=== PATIENT | female | born 1945 | race Caucasian/White ===

== ENCOUNTER 2020-05-03 16:26 | Inpatient (IN) ==
[2020-05-03 17:08] LABS: Basophils # 0.1 K/mcL (0.0-0.2); Basophils % 0.8 %; Eosinophils # 0.3 K/mcL (0.0-0.6); Eosinophils % 2.8 %; Hematocrit 28.8 % (35.3-44.9); Hemoglobin 10.5 g/dL (11.5-15.4); Immature Granulocytes % 0.2 % (0-4); Lymphocytes # 1.6 K/mcL (0.6-4.6); Lymphocytes % 17.5 %; Mean Corpuscular HGB Conc 36.5 g/dL (31.6-35.5); Mean Corpuscular Hemoglobin 30.7 pg (28.0-33.3); Mean Corpuscular Volume 84.2 fL (83.0-100.0); Mean Platelet Volume 9.4 fL (9.4-12.4); Monocytes # 1.2 K/mcL (0.0-1.3); Monocytes % 13.3 %; Neutrophils # 5.8 K/mcL (1.6-8.9); Platelet Count 231 K/mcL (140-400); Red Blood Count 3.42 M/mcL (3.82-4.97); Red Cell Distribution Width 11.7 % (11.5-14.5); Segmented Neutrophils % 65.4 %; White Blood Count 8.8 K/mcL (4.3-11.1)
[2020-05-03 17:34] LABS: Calcium 9.1 mg/dL (8.6-10.3); Potassium 3.9 mEq/L (3.5-5.1); Troponin I 0.03 ng/mL (< 0.04)
[2020-05-03] MEDS ORDERED: Naloxone 0.4 MG/ML INJ IVP PRN (17:59)
[2020-05-03 18:29] LABS: Albumin/Globulin Ratio 1.3 (1.1-2.2); Bilirubin,Direct 0.2 mg/dL (0.0-0.2); Bilirubin,Indirect 0.7 mg/dL (0.0-1.0); Bilirubin,Total 0.9 mg/dL (0.3-1.0)
[2020-05-03] MEDS ORDERED: 0.9 % Sodium Chloride 1,000 ML IVC SCH (18:30)
[2020-05-03 21:08] LABS: Adenovirus Not Detected (Not Detect); Bordetella Pertussis Not Detected (Not Detect); Chlamydophila pneumoniae Not Detected (Not Detect); Coronavirus 229E Not Detected (Not Detect); Coronavirus HKU1 Not Detected (Not Detect); Coronavirus NL63 Not Detected (Not Detect); Coronavirus OC43 Not Detected (Not Detect); Human Metapneumovirus Not Detected (Not Detect); Human Rhinovirus/Enterovirus Not Detected (Not Detect); Influenza A Subtype 2009 H1 Not Detected (Not Detect); Influenza B Not Detected (Not Detect); Mycoplasma pneumoniae Not Detected (Not Detect); Parainfluenza Virus 1 Not Detected (Not Detect); Parainfluenza Virus 2 Not Detected (Not Detect); Parainfluenza Virus 3 Not Detected (Not Detect); Parainfluenza Virus 4 Not Detected (Not Detect); Respiratory Syncytial Virus Not Detected (Not Detect)
[2020-05-03 21:09] LABS: SARS-CoV-2 Not Detected (Not Detect)
[2020-05-03] MEDS: hydrALAZINE 10 MG TABLET PO SCH (22:19)
[2020-05-03] MEDS: carvediloL 6.25 MG TABLET PO SCH (22:19)
[2020-05-03 22:42] LABS: Bilirubin,Urine Negative (Negative); Blood,Urine Small (Negative); Clarity,Urine Clear (Clear); Color,Urine Light-Yellow (Yellow); Glucose,Urine (UA) 30 mg/dL (Normal); Hyaline Casts,Urine Few per lpf (None Seen); Ketones,Urine Negative (Negative); Leukocyte Esterase,Urine Negative (Negative); Mucus,Urine Few per lpf (None-Few); Nitrite,Urine Negative (Negative); PH,Urine 6.5 pH Units (5.0-8.0); Protein,Urine >=300 mg/dL (Neg-Trace); Specific Gravity,Urine 1.011 (1.010-1.025); Squamous Epithelial Cell,Urine Few per hpf (None-Few); Urobilinogen,Urine Normal (Normal); WBC,Urine 0-3 per hpf (0-3)
[2020-05-03 23:08] LABS: Creatinine,Urine 63 mg/dL; Microalbumin,Urine > 1350 mg/L; Protein/Creatinine Ratio,Urine 5.83 mg/mg (0.00-0.20); Sodium, Urine 61.3 mEq/L
[2020-05-04] MEDS ORDERED: amLODIPine 5 MG TABLET PO ONE (00:16)
[2020-05-04 06:13] LABS: Basophils # 0.1 K/mcL (0.0-0.2); Basophils % 0.9 %; Eosinophils # 0.1 K/mcL (0.0-0.6); Hematocrit 25.6 % (35.3-44.9); Hemoglobin 9.4 g/dL (11.5-15.4); Immature Granulocytes % 0.3 % (0-4); Lymphocytes # 1.3 K/mcL (0.6-4.6); Lymphocytes % 15.2 %; Mean Corpuscular HGB Conc 36.7 g/dL (31.6-35.5); Mean Corpuscular Hemoglobin 30.9 pg (28.0-33.3); Mean Corpuscular Volume 84.2 fL (83.0-100.0); Mean Platelet Volume 9.7 fL (9.4-12.4); Monocytes # 0.7 K/mcL (0.0-1.3); Monocytes % 8.3 %; Neutrophils # 6.4 K/mcL (1.6-8.9); Platelet Count 211 K/mcL (140-400); Red Blood Count 3.04 M/mcL (3.82-4.97); Red Cell Distribution Width 11.8 % (11.5-14.5); Segmented Neutrophils % 74.3 %; White Blood Count 8.7 K/mcL (4.3-11.1)
[2020-05-04 06:43] LABS: Calcium 8.4 mg/dL (8.6-10.3); Potassium 3.9 mEq/L (3.5-5.1)
[2020-05-04] MEDS: Isosorbide MONOnitrate (24 HR) 30 MG TAB.ER.24H PO SCH (08:00)
[2020-05-04] MEDS: Aspirin 81 MG TAB.CHEW PO SCH (08:00)
[2020-05-04] MEDS: amLODIPine 5 MG TABLET PO SCH (08:00)
[2020-05-04] MEDS: carvediloL 6.25 MG TABLET PO SCH ×2 (08:00→16:11)
[2020-05-04] MEDS: hydrALAZINE 10 MG TABLET PO SCH ×3 (08:01→19:52)
[2020-05-04 09:44] LABS: Thyroid Stimulating Hormone 3.983 mcIU/mL (0.340-5.600)
[2020-05-04 10:43] LABS: Complement C3 102 mg/dL (87-200)
[2020-05-04 14:02] LABS: C-Reactive Protein < 5 mg/L (Less than 10)
[2020-05-04 14:43] LABS: Albumin 3.5 g/dL (3.5-5.7); Albumin/Globulin Ratio 1.3 (1.1-2.2); Globulin 2.6 g/dL (2.4-3.5); Lactate Dehydrogenase 249 Units/L (140-271); Total Protein 6.1 g/dL (6.4-8.9)
[2020-05-04 17:31] LABS: Appearance of Pleural Fl Hazy (Clear)
[2020-05-04 17:37] LABS: RBC,Pleural Fluid 6000 RBC/mcL
[2020-05-04 17:51] LABS: LDH,Pleural Fluid 67 Units/L (No Ref Range); Total Protein,Pleural Fluid < 3.0 g/dL
[2020-05-04] MEDS: *HR* Heparin 5,000 UNIT/ML VIAL SQ SCH (19:53)
[2020-05-04 20:18] LABS: Basophils,Pleural Fluid 0 %; Eosinophils,Pleural Fluid 0 %; Monocytes,Pleural Fluid 0 %
[2020-05-04 23:35] LABS: Calcium 8.5 mg/dL (8.6-10.3)
[2020-05-05] MEDS ORDERED: Acetaminophen 325 MG TABLET PO ONE (04:34)
[2020-05-05] MEDS: *HR* Heparin 5,000 UNIT/ML VIAL SQ SCH ×2 (05:10→17:05)
[2020-05-05 05:37] LABS: Basophils # 0.1 K/mcL (0.0-0.2); Basophils % 0.6 %; Eosinophils # 0.1 K/mcL (0.0-0.6); Eosinophils % 0.6 %; Hemoglobin 8.4 g/dL (11.5-15.4); Immature Granulocytes % 0.3 % (0-4); Lymphocytes # 1.6 K/mcL (0.6-4.6); Lymphocytes % 16.3 %; Mean Corpuscular HGB Conc 36.5 g/dL (31.6-35.5); Mean Corpuscular Hemoglobin 32.1 pg (28.0-33.3); Mean Corpuscular Volume 87.8 fL (83.0-100.0); Mean Platelet Volume 9.5 fL (9.4-12.4); Monocytes # 0.8 K/mcL (0.0-1.3); Monocytes % 8.2 %; Neutrophils # 7.4 K/mcL (1.6-8.9); Platelet Count 184 K/mcL (140-400); Red Blood Count 2.62 M/mcL (3.82-4.97); Red Cell Distribution Width 11.8 % (11.5-14.5)
[2020-05-05 05:52] LABS: Calcium 8.1 mg/dL (8.6-10.3)
[2020-05-05] MEDS: Aspirin 81 MG TAB.CHEW PO SCH (07:33)
[2020-05-05] MEDS: carvediloL 6.25 MG TABLET PO SCH ×2 (07:33→15:42)
[2020-05-05] MEDS: amLODIPine 5 MG TABLET PO SCH (07:33)
[2020-05-05] MEDS: Isosorbide MONOnitrate (24 HR) 30 MG TAB.ER.24H PO SCH (07:33)
[2020-05-05] MEDS: hydrALAZINE 10 MG TABLET PO SCH (07:33)
[2020-05-05] MEDS ORDERED: Furosemide 40 MG/4 ML VIAL IVP ONE (10:11)
[2020-05-05 11:50] LABS: Calcium 7.9 mg/dL (8.6-10.3); Potassium 4.2 mEq/L (3.5-5.1)
[2020-05-05] MEDS ORDERED: Tolvaptan 15 MG TABLET PO ONE (14:34)
[2020-05-05 15:31] LABS: Calcium 8.1 mg/dL (8.6-10.3)
[2020-05-05] MEDS: hydrALAZINE 25 MG TABLET PO SCH ×2 (15:42→22:12)
[2020-05-06] MEDS: *HR* Heparin 5,000 UNIT/ML VIAL SQ SCH ×2 (05:15→17:38)
[2020-05-06 07:38] LABS: Basophils # 0.1 K/mcL (0.0-0.2); Basophils % 0.6 %; Eosinophils # 0.2 K/mcL (0.0-0.6); Eosinophils % 1.8 %; Hemoglobin 8.3 g/dL (11.5-15.4); Immature Granulocytes % 0.2 % (0-4); Lymphocytes # 1.5 K/mcL (0.6-4.6); Lymphocytes % 16.5 %; Mean Corpuscular HGB Conc 36.1 g/dL (31.6-35.5); Mean Corpuscular Hemoglobin 31.4 pg (28.0-33.3); Mean Corpuscular Volume 87.1 fL (83.0-100.0); Mean Platelet Volume 9.6 fL (9.4-12.4); Monocytes % 11.4 %; Neutrophils # 6.1 K/mcL (1.6-8.9); Platelet Count 188 K/mcL (140-400); Red Blood Count 2.64 M/mcL (3.82-4.97); Red Cell Distribution Width 11.8 % (11.5-14.5); Segmented Neutrophils % 69.5 %; White Blood Count 8.8 K/mcL (4.3-11.1)
[2020-05-06 07:51] LABS: Calcium 8.3 mg/dL (8.6-10.3); Potassium 3.8 mEq/L (3.5-5.1)
[2020-05-06] MEDS: amLODIPine 5 MG TABLET PO SCH (08:05)
[2020-05-06] MEDS: carvediloL 6.25 MG TABLET PO SCH ×2 (08:05→15:26)
[2020-05-06] MEDS: Isosorbide MONOnitrate (24 HR) 30 MG TAB.ER.24H PO SCH (08:05)
[2020-05-06] MEDS: hydrALAZINE 25 MG TABLET PO SCH ×3 (08:05→22:27)
[2020-05-06] MEDS: Aspirin 81 MG TAB.CHEW PO SCH (08:05)
[2020-05-06 08:12] LABS: Folate 19.1 ng/mL (3.0-16.0)
[2020-05-06 10:41] LABS: Serine Protease-3 Antibody 2 AU/mL (0-19)
[2020-05-06 10:43] LABS: ANA IgG by ELISA DETECTED (None Detected)
[2020-05-06] MEDS ORDERED: Ferumoxytol 510 MG in 0.9 % Sodium Chloride 100 ML IVPB ONE (12:37)
[2020-05-07 02:00] LABS: QuantiFERON Mitogen minus NIL 9.17 IU/mL
[2020-05-07] MEDS: *HR* Heparin 5,000 UNIT/ML VIAL SQ SCH ×2 (05:37→17:05)
[2020-05-07 07:34] LABS: Basophils # 0.1 K/mcL (0.0-0.2); Basophils % 1.4 %; Eosinophils # 0.3 K/mcL (0.0-0.6); Eosinophils % 3.7 %; Hematocrit 25.3 % (35.3-44.9); Immature Granulocytes % 0.4 % (0-4); Lymphocytes # 1.6 K/mcL (0.6-4.6); Lymphocytes % 19.3 %; Mean Corpuscular HGB Conc 35.6 g/dL (31.6-35.5); Mean Corpuscular Hemoglobin 31.3 pg (28.0-33.3); Mean Corpuscular Volume 87.8 fL (83.0-100.0); Mean Platelet Volume 9.5 fL (9.4-12.4); Monocytes # 0.9 K/mcL (0.0-1.3); Monocytes % 11.6 %; Neutrophils # 5.2 K/mcL (1.6-8.9); Platelet Count 212 K/mcL (140-400); Red Blood Count 2.88 M/mcL (3.82-4.97); Red Cell Distribution Width 11.9 % (11.5-14.5); Segmented Neutrophils % 63.6 %; White Blood Count 8.1 K/mcL (4.3-11.1)
[2020-05-07 07:50] LABS: Calcium 9.1 mg/dL (8.6-10.3); Potassium 3.9 mEq/L (3.5-5.1)
[2020-05-07 09:04] LABS: QuantiFERON NIL 0.09 IU/mL; QuantiFERON-TB Gold In-Tube NEGATIVE (Negative)
[2020-05-07] MEDS: Isosorbide MONOnitrate (24 HR) 30 MG TAB.ER.24H PO SCH (09:34)
[2020-05-07] MEDS: Aspirin 81 MG TAB.CHEW PO SCH (09:34)
[2020-05-07] MEDS: hydrALAZINE 25 MG TABLET PO SCH ×3 (09:34→21:19)
[2020-05-07] MEDS: amLODIPine 5 MG TABLET PO SCH (09:34)
[2020-05-07] MEDS: carvediloL 6.25 MG TABLET PO SCH ×2 (09:34→17:05)
[2020-05-07] MEDS ORDERED: Saline Nasal Spray 44 ML BOTTLE NS PRN (14:47)
[2020-05-08 02:00] LABS: Basophils # 0.1 K/mcL (0.0-0.2); Basophils % 1.1 %; Eosinophils # 0.2 K/mcL (0.0-0.6); Eosinophils % 2.7 %; Hematocrit 22.7 % (35.3-44.9); Hemoglobin 8.1 g/dL (11.5-15.4); Immature Granulocytes % 0.7 % (0-4); Lymphocytes # 1.5 K/mcL (0.6-4.6); Mean Corpuscular HGB Conc 35.7 g/dL (31.6-35.5); Mean Corpuscular Hemoglobin 31.8 pg (28.0-33.3); Mean Platelet Volume 9.7 fL (9.4-12.4); Monocytes # 0.8 K/mcL (0.0-1.3); Neutrophils # 6.1 K/mcL (1.6-8.9); Platelet Count 192 K/mcL (140-400); Red Blood Count 2.55 M/mcL (3.82-4.97); Red Cell Distribution Width 11.9 % (11.5-14.5); Segmented Neutrophils % 69.5 %; White Blood Count 8.8 K/mcL (4.3-11.1)
[2020-05-08 02:16] LABS: Calcium 8.2 mg/dL (8.6-10.3); Potassium 4.4 mEq/L (3.5-5.1)
[2020-05-08] MEDS: *HR* Heparin 5,000 UNIT/ML VIAL SQ SCH ×2 (06:15→16:02)
[2020-05-08] MEDS: hydrALAZINE 25 MG TABLET PO SCH ×3 (07:28→21:54)
[2020-05-08] MEDS: Aspirin 81 MG TAB.CHEW PO SCH (07:28)
[2020-05-08] MEDS: Isosorbide MONOnitrate (24 HR) 30 MG TAB.ER.24H PO SCH (07:28)
[2020-05-08] MEDS: carvediloL 6.25 MG TABLET PO SCH (07:28)
[2020-05-08] MEDS: amLODIPine 5 MG TABLET PO SCH (07:29)
[2020-05-08 08:16] LABS: ANA HEp-2 IgG IFA DETECTED (<1:80); Anti Nuclear Ab Pattern CENTROMERE; Anti Nuclear Ab Pattern 2 NUCLEOLAR
[2020-05-08] MEDS ORDERED: carvediloL 6.25 MG TABLET PO ONE (11:14)
[2020-05-08 12:16] LABS: Prothrombin Time 11.4 Seconds (9.4-12.1)
[2020-05-08] MEDS: carvediloL 25 MG TABLET PO SCH (16:01)
[2020-05-08] MEDS ORDERED: Tolvaptan 15 MG TABLET PO ONE (22:01)
[2020-05-09] MEDS: *HR* Heparin 5,000 UNIT/ML VIAL SQ SCH ×2 (04:48→16:32)
[2020-05-09 04:49] LABS: Basophils # 0.1 K/mcL (0.0-0.2); Basophils % 1.2 %; Eosinophils # 0.3 K/mcL (0.0-0.6); Hematocrit 22.9 % (35.3-44.9); Hemoglobin 7.8 g/dL (11.5-15.4); Immature Granulocytes % 0.4 % (0-4); Lymphocytes # 1.7 K/mcL (0.6-4.6); Lymphocytes % 23.1 %; Mean Corpuscular HGB Conc 34.1 g/dL (31.6-35.5); Mean Corpuscular Hemoglobin 30.4 pg (28.0-33.3); Mean Corpuscular Volume 89.1 fL (83.0-100.0); Mean Platelet Volume 9.7 fL (9.4-12.4); Monocytes # 0.7 K/mcL (0.0-1.3); Monocytes % 10.1 %; Neutrophils # 4.4 K/mcL (1.6-8.9); Platelet Count 195 K/mcL (140-400); Red Blood Count 2.57 M/mcL (3.82-4.97); Red Cell Distribution Width 11.7 % (11.5-14.5); Segmented Neutrophils % 61.2 %; White Blood Count 7.2 K/mcL (4.3-11.1)
[2020-05-09 05:04] LABS: Albumin 3.3 g/dL (3.5-5.7); Albumin/Globulin Ratio 1.3 (1.1-2.2); Bilirubin,Total 0.7 mg/dL (0.3-1.0); Calcium 8.1 mg/dL (8.6-10.3); Globulin 2.5 g/dL (2.4-3.5); Potassium 4.3 mEq/L (3.5-5.1); Total Protein 5.8 g/dL (6.4-8.9)
[2020-05-09] MEDS ORDERED: 0.9 % Sodium Chloride 500 ML ONE (09:25)
[2020-05-09] MEDS: Spironolactone 25 MG TABLET PO SCH (09:58)
[2020-05-09] MEDS: carvediloL 25 MG TABLET PO SCH ×2 (09:58→16:32)
[2020-05-09] MEDS: amLODIPine 5 MG TABLET PO SCH (09:58)
[2020-05-09] MEDS: Aspirin 81 MG TAB.CHEW PO SCH (09:59)
[2020-05-09] MEDS: Isosorbide MONOnitrate (24 HR) 30 MG TAB.ER.24H PO SCH (09:59)
[2020-05-09] MEDS: hydrALAZINE 25 MG TABLET PO SCH ×3 (09:59→22:12)
[2020-05-09] MEDS ORDERED: *HR* Metoprolol 5 MG/5 ML VIAL IVP PRN (10:46)
[2020-05-09] MEDS: Tolvaptan 15 MG TABLET PO SCH (16:32)
[2020-05-10] MEDS: carvediloL 25 MG TABLET PO SCH ×2 (07:07→16:32)
[2020-05-10] MEDS: hydrALAZINE 25 MG TABLET PO SCH ×3 (07:07→21:57)
[2020-05-10] MEDS: amLODIPine 5 MG TABLET PO SCH (07:07)
[2020-05-10] MEDS: Spironolactone 25 MG TABLET PO SCH (07:08)
[2020-05-10] MEDS: Isosorbide MONOnitrate (24 HR) 30 MG TAB.ER.24H PO SCH (07:08)
[2020-05-10 07:20] LABS: Hematocrit 24.1 % (35.3-44.9); Hemoglobin 8.4 g/dL (11.5-15.4); Mean Corpuscular HGB Conc 34.9 g/dL (31.6-35.5); Mean Corpuscular Hemoglobin 30.7 pg (28.0-33.3); Mean Platelet Volume 9.7 fL (9.4-12.4); Platelet Count 202 K/mcL (140-400); Red Blood Count 2.74 M/mcL (3.82-4.97); Red Cell Distribution Width 11.9 % (11.5-14.5); White Blood Count 6.9 K/mcL (4.3-11.1)
[2020-05-10 07:38] LABS: Calcium 8.4 mg/dL (8.6-10.3); Potassium 4.4 mEq/L (3.5-5.1)
[2020-05-10] MEDS ORDERED: cloNIDine HCL 0.1 MG TABLET PO ONE (08:44)
[2020-05-10] MEDS ORDERED: *HR* FentaNYL (PF) 100 MCG/2 ML VIAL ONE (10:50)
[2020-05-10] MEDS ORDERED: 0.9 % Sodium Chloride 500 ML ONE (10:50)
[2020-05-10] MEDS ORDERED: *HR* Midazolam HCl 2 MG/2 ML VIAL ONE (10:50)
[2020-05-10] MEDS ORDERED: *HR* FentaNYL (PF) 100 MCG/2 ML VIAL IVP ONE (11:03)
[2020-05-10] MEDS ORDERED: *HR* Midazolam HCl 2 MG/2 ML VIAL IVP ONE (11:03)
[2020-05-10] MEDS: Aspirin 81 MG TAB.CHEW PO SCH (11:50)
[2020-05-10] MEDS: Tolvaptan 15 MG TABLET PO SCH (14:20)
[2020-05-10 18:03] LABS: Calcium 8.5 mg/dL (8.6-10.3); Potassium 4.3 mEq/L (3.5-5.1)
[2020-05-11 02:01] LABS: Hematocrit 22.8 % (35.3-44.9); Hemoglobin 7.9 g/dL (11.5-15.4); Mean Corpuscular HGB Conc 34.6 g/dL (31.6-35.5); Mean Corpuscular Hemoglobin 30.6 pg (28.0-33.3); Mean Corpuscular Volume 88.4 fL (83.0-100.0); Mean Platelet Volume 9.7 fL (9.4-12.4); Platelet Count 198 K/mcL (140-400); Red Blood Count 2.58 M/mcL (3.82-4.97); Red Cell Distribution Width 11.9 % (11.5-14.5); White Blood Count 8.9 K/mcL (4.3-11.1)
[2020-05-11 02:20] LABS: Calcium 8.6 mg/dL (8.6-10.3); Potassium 4.5 mEq/L (3.5-5.1)
[2020-05-11] MEDS: amLODIPine 5 MG TABLET PO SCH (09:35)
[2020-05-11] MEDS: Spironolactone 25 MG TABLET PO SCH (09:35)
[2020-05-11] MEDS: carvediloL 25 MG TABLET PO SCH ×2 (09:35→16:15)
[2020-05-11] MEDS: Aspirin 81 MG TAB.CHEW PO SCH (09:35)
[2020-05-11] MEDS: hydrALAZINE 25 MG TABLET PO SCH ×3 (09:35→21:27)
[2020-05-11] MEDS: Isosorbide MONOnitrate (24 HR) 30 MG TAB.ER.24H PO SCH (09:35)
[2020-05-11] MEDS: Tolvaptan 15 MG TABLET PO SCH (10:01)
[2020-05-11] MEDS ORDERED: Acetaminophen 325 MG TABLET PO PRN (11:25)
[2020-05-11 16:11] LABS: Calcium 8.3 mg/dL (8.6-10.3); Potassium 4.7 mEq/L (3.5-5.1)
[2020-05-11] MEDS ORDERED: Ondansetron 4 MG/2 ML VIAL IVP ONE (22:12)
[2020-05-12 06:38] LABS: Hematocrit 23.6 % (35.3-44.9); Hemoglobin 8.4 g/dL (11.5-15.4); Mean Corpuscular HGB Conc 35.6 g/dL (31.6-35.5); Mean Corpuscular Hemoglobin 31.3 pg (28.0-33.3); Mean Corpuscular Volume 88.1 fL (83.0-100.0); Mean Platelet Volume 9.8 fL (9.4-12.4); Platelet Count 205 K/mcL (140-400); Red Blood Count 2.68 M/mcL (3.82-4.97); Red Cell Distribution Width 12.1 % (11.5-14.5); White Blood Count 11.2 K/mcL (4.3-11.1)
[2020-05-12 07:02] LABS: Calcium 8.2 mg/dL (8.6-10.3); Potassium 4.5 mEq/L (3.5-5.1)
[2020-05-12] MEDS: amLODIPine 5 MG TABLET PO SCH (09:18)
[2020-05-12] MEDS: carvediloL 25 MG TABLET PO SCH ×2 (09:18→16:57)
[2020-05-12] MEDS: hydrALAZINE 25 MG TABLET PO SCH ×2 (09:18→16:56)
[2020-05-12] MEDS: Aspirin 81 MG TAB.CHEW PO SCH (09:18)
[2020-05-12] MEDS: Isosorbide MONOnitrate (24 HR) 30 MG TAB.ER.24H PO SCH (09:18)
[2020-05-12] MEDS: Spironolactone 25 MG TABLET PO SCH (09:18)
[2020-05-12] MEDS: Tolvaptan 15 MG TABLET PO SCH (09:23)
[2020-05-12 16:57] VITALS: BP 148/56
[2020-05-12 17:42] LABS: Calcium 8.6 mg/dL (8.6-10.3); Potassium 4.5 mEq/L (3.5-5.1)
== END 2020-05-12 20:26 | disposition home or self-care (01) | DRG 682 ==
LOC: 2ANU 16:26 → EMEROOARM 16:26 → 2ANU 21:15 → SUATTDRO 05-04 13:27
PROVIDERS: ADMIT Internal Medicine; ATTEND Internal Medicine

== ENCOUNTER 2021-03-05 10:38 | Inpatient (IN) ==
[2021-03-05 13:10] LABS: INR 1.2; Prothrombin Time 13.7 Seconds (9.4-12.1)
[2021-03-05 13:20] LABS: Basophils # 0.1 K/mcL (0.0-0.2); Basophils % 0.8 %; Eosinophils # 0.1 K/mcL (0.0-0.6); Eosinophils % 0.7 %; Hematocrit 22.9 % (35.3-44.9); Hemoglobin 8.1 g/dL (11.5-15.4); Immature Granulocytes % 0.6 % (0-4); Lymphocytes # 0.6 K/mcL (0.6-4.6); Lymphocytes % 4.9 %; Mean Corpuscular HGB Conc 35.4 g/dL (31.6-35.5); Mean Corpuscular Hemoglobin 31.8 pg (28.0-33.3); Mean Corpuscular Volume 89.8 fL (83.0-100.0); Mean Platelet Volume 9.6 fL (9.4-12.4); Monocytes # 1.1 K/mcL (0.0-1.3); Monocytes % 8.2 %; Platelet Count 241 K/mcL (140-400); Red Blood Count 2.55 M/mcL (3.82-4.97); Red Cell Distribution Width 12.4 % (11.5-14.5); Segmented Neutrophils % 84.8 %
[2021-03-05 13:33] LABS: Calcium 8.3 mg/dL (8.6-10.3); Potassium 4.7 mEq/L (3.5-5.1); Troponin I 0.03 ng/mL (< 0.04)
[2021-03-05] MEDS ORDERED: Piperacillin/Tazobactam 3.375 GM in 0.9 % Sodium Chloride Mini Bag 100 ML IVPB ONE (13:35)
[2021-03-05] MEDS ORDERED: Vancomycin 500 MG in 0.9 % Sodium Chloride Mini Bag 100 ML IVPB ONE ×2 (13:55→14:00)
[2021-03-05] MEDS ORDERED: 0.9 % Sodium Chloride 1,000 ML IVC SCH (14:30)
[2021-03-05 14:43] LABS: Bilirubin,Urine Negative (Negative); Blood,Urine Small (Negative); Clarity,Urine Clear (Clear); Color,Urine Light-Yellow (Yellow); Glucose,Urine (UA) 100 mg/dL (Normal); Hyaline Casts,Urine Few per lpf (None Seen); Ketones,Urine Negative (Negative); Leukocyte Esterase,Urine Trace (Negative); Mucus,Urine Few per lpf (None-Few); Nitrite,Urine Negative (Negative); Protein,Urine >=300 mg/dL (Neg-Trace); RBC,Urine 0-3 per hpf (0-3); Specific Gravity,Urine 1.016 (1.010-1.025); Squamous Epithelial Cell,Urine Few per hpf (None-Few); Transitional Epi Cells,Urine Few per hpf (None-Few); Urobilinogen,Urine Normal (Normal)
[2021-03-05] MEDS ORDERED: MOM Conc 10 ML UD.LIQ PO PRN (16:43)
[2021-03-05] MEDS ORDERED: Mag Hydrox/Al Hydrox/Simeth 30 ML UDC PO PRN (16:43)
[2021-03-05] MEDS ORDERED: Naloxone 0.4 MG/ML INJ IVP PRN (16:43)
[2021-03-05] MEDS ORDERED: *HR* Dextrose 50 % in Water (Vial) 50 ML VIAL IVP PRN (18:27)
[2021-03-05] MEDS ORDERED: Dextrose Gel 15 GM/37.5 ML TUBE PO PRN ×2 (18:27)
[2021-03-05] MEDS ORDERED: D5% in Water 1,000 ML IVC PRN (18:27)
[2021-03-05] MEDS ORDERED: Vancomycin 500 MG in 0.9 % Sodium Chloride 250 ML IVPB SCH (19:00)
[2021-03-05] MEDS: carvediloL 25 MG TABLET PO SCH (19:01)
[2021-03-05] MEDS: hydrALAZINE 25 MG TABLET PO SCH (19:01)
[2021-03-05] MEDS: *HR* Heparin 5,000 UNIT/ML VIAL SQ SCH (20:58)
[2021-03-05] MEDS: Insulin LISPRO 300 UNITS/3 ML VIAL SUBQ SCH (20:58)
[2021-03-06] MEDS: hydrALAZINE 25 MG TABLET PO SCH ×4 (00:04→16:28)
[2021-03-06 02:03] LABS: Hematocrit 20.5 % (35.3-44.9); Hemoglobin 7.4 g/dL (11.5-15.4); Mean Corpuscular HGB Conc 36.1 g/dL (31.6-35.5); Mean Corpuscular Hemoglobin 32.9 pg (28.0-33.3); Mean Corpuscular Volume 91.1 fL (83.0-100.0); Mean Platelet Volume 9.2 fL (9.4-12.4); Platelet Count 199 K/mcL (140-400); Red Blood Count 2.25 M/mcL (3.82-4.97); Red Cell Distribution Width 12.5 % (11.5-14.5); White Blood Count 11.7 K/mcL (4.3-11.1)
[2021-03-06] MEDS: Piperacillin/Tazobactam 3.375 GM in 0.9 % Sodium Chloride Mini Bag 100 ML IVPB SCH ×2 (02:12→16:28)
[2021-03-06 02:23] LABS: Calcium 7.8 mg/dL (8.6-10.3); Magnesium 1.9 mg/dL (1.6-2.6); Potassium 4.8 mEq/L (3.5-5.1)
[2021-03-06] MEDS: *HR* Heparin 5,000 UNIT/ML VIAL SQ SCH ×3 (06:04→20:54)
[2021-03-06] MEDS ORDERED: Furosemide 20 MG TABLET PO SCH (09:00)
[2021-03-06] MEDS: Isosorbide MONOnitrate (24 HR) 30 MG TAB.ER.24H PO SCH (09:06)
[2021-03-06] MEDS: amLODIPine 5 MG TABLET PO SCH (09:06)
[2021-03-06] MEDS: Aspirin 81 MG TAB.CHEW PO SCH (09:06)
[2021-03-06] MEDS: carvediloL 25 MG TABLET PO SCH ×2 (09:06→16:29)
[2021-03-06] MEDS: Insulin LISPRO 300 UNITS/3 ML VIAL SUBQ SCH ×4 (09:13→20:50)
[2021-03-06 14:47] LABS: % Iron Saturation 15 % (15-50); Iron 26 mcg/dL (50-170); Transferrin 127 mg/dL (203-362)
[2021-03-06 15:02] LABS: Ferritin 494 ng/mL (10-120)
[2021-03-06 17:53] LABS: Adenovirus Not Detected (Not Detect); Bordetella Pertussis Not Detected (Not Detect); Chlamydophila pneumoniae Not Detected (Not Detect); Coronavirus 229E Not Detected (Not Detect); Coronavirus HKU1 Not Detected (Not Detect); Coronavirus NL63 Not Detected (Not Detect); Coronavirus OC43 Not Detected (Not Detect); Human Metapneumovirus Not Detected (Not Detect); Human Rhinovirus/Enterovirus Not Detected (Not Detect); Influenza A Subtype 2009 H1 Not Detected (Not Detect); Influenza B Not Detected (Not Detect); Mycoplasma pneumoniae Not Detected (Not Detect); Parainfluenza Virus 1 Not Detected (Not Detect); Parainfluenza Virus 2 Not Detected (Not Detect); Parainfluenza Virus 3 Not Detected (Not Detect); Parainfluenza Virus 4 Not Detected (Not Detect); Respiratory Syncytial Virus Not Detected (Not Detect); SARS-CoV-2 Not Detected (Not Detect)
[2021-03-06 21:01] LABS: Sodium, Urine 14.3 mEq/L
[2021-03-07] MEDS: hydrALAZINE 25 MG TABLET PO SCH ×3 (02:01→18:10)
[2021-03-07] MEDS: Piperacillin/Tazobactam 3.375 GM in 0.9 % Sodium Chloride Mini Bag 100 ML IVPB SCH ×2 (02:02→17:08)
[2021-03-07] MEDS: *HR* Heparin 5,000 UNIT/ML VIAL SQ SCH ×2 (04:22→13:06)
[2021-03-07 04:40] LABS: Hematocrit 18.9 % (35.3-44.9); Hemoglobin 6.6 g/dL (11.5-15.4); Mean Corpuscular HGB Conc 34.9 g/dL (31.6-35.5); Mean Corpuscular Hemoglobin 32.4 pg (28.0-33.3); Mean Corpuscular Volume 92.6 fL (83.0-100.0); Mean Platelet Volume 9.1 fL (9.4-12.4); Platelet Count 185 K/mcL (140-400); Red Blood Count 2.04 M/mcL (3.82-4.97); Red Cell Distribution Width 12.5 % (11.5-14.5); White Blood Count 10.8 K/mcL (4.3-11.1)
[2021-03-07 04:57] LABS: Magnesium 1.9 mg/dL (1.6-2.6); Potassium 4.9 mEq/L (3.5-5.1)
[2021-03-07] MEDS: Aspirin 81 MG TAB.CHEW PO SCH (08:11)
[2021-03-07] MEDS: amLODIPine 5 MG TABLET PO SCH (08:11)
[2021-03-07] MEDS: carvediloL 25 MG TABLET PO SCH ×2 (08:11→18:10)
[2021-03-07] MEDS: Isosorbide MONOnitrate (24 HR) 30 MG TAB.ER.24H PO SCH (08:11)
[2021-03-07] MEDS: Insulin LISPRO 300 UNITS/3 ML VIAL SUBQ SCH ×4 (08:13→19:50)
[2021-03-07 09:00] LABS: Hematocrit 20.4 % (35.3-44.9); Hemoglobin 6.8 g/dL (11.5-15.4)
[2021-03-07] MEDS ORDERED: 0.9 % Sodium Chloride 250 ML ONE (13:24)
[2021-03-07 15:02] LABS: RBC,Pleural Fluid 2000 RBC/mcL
[2021-03-07 15:32] LABS: Glucose,Pleural Fluid 21 mg/dL (No Ref Range); LDH,Pleural Fluid > 1200 Units/L (No Ref Range); Total Protein,Pleural Fluid 3.6 g/dL
[2021-03-07 17:46] LABS: Appearance of Pleural Fl Clear (Clear); Basophils,Pleural Fluid 0 %; Eosinophils,Pleural Fluid 0 %; Lymphocytes,Pleural Fluid 0 %; Monocytes,Pleural Fluid 0 %
[2021-03-07 18:52] LABS: Hematocrit 24.8 % (35.3-44.9)
[2021-03-07 18:53] LABS: Hemoglobin 8.6 g/dL (11.5-15.4)
[2021-03-07] MEDS ORDERED: Vancomycin 500 MG in 0.9 % Sodium Chloride Mini Bag 100 ML IVPB ONE (19:00)
[2021-03-08] MEDS: hydrALAZINE 25 MG TABLET PO SCH ×3 (00:07→17:23)
[2021-03-08 00:29] LABS: Hematocrit 24.7 % (35.3-44.9); Hemoglobin 8.5 g/dL (11.5-15.4); Mean Corpuscular HGB Conc 34.4 g/dL (31.6-35.5); Mean Corpuscular Hemoglobin 31.3 pg (28.0-33.3); Mean Corpuscular Volume 90.8 fL (83.0-100.0); Mean Platelet Volume 9.4 fL (9.4-12.4); Platelet Count 174 K/mcL (140-400); Red Blood Count 2.72 M/mcL (3.82-4.97); White Blood Count 11.5 K/mcL (4.3-11.1)
[2021-03-08 00:37] LABS: Calcium 8.1 mg/dL (8.6-10.3); Potassium 4.8 mEq/L (3.5-5.1)
[2021-03-08] MEDS: Piperacillin/Tazobactam 3.375 GM in 0.9 % Sodium Chloride Mini Bag 100 ML IVPB SCH ×2 (02:38→15:17)
[2021-03-08] MEDS: Insulin LISPRO 300 UNITS/3 ML VIAL SUBQ SCH ×4 (08:32→19:51)
[2021-03-08] MEDS: Aspirin 81 MG TAB.CHEW PO SCH (09:16)
[2021-03-08] MEDS: carvediloL 25 MG TABLET PO SCH ×2 (09:17→17:23)
[2021-03-08] MEDS: Isosorbide MONOnitrate (24 HR) 30 MG TAB.ER.24H PO SCH (09:17)
[2021-03-08] MEDS: amLODIPine 5 MG TABLET PO SCH (09:17)
[2021-03-08] MEDS ORDERED: 0.9 % Sodium Chloride 1,000 ML IVC SCH (16:00)
[2021-03-08] MEDS ORDERED: Sodium Bicarbonate 150 MEQ in D5% in Water 1,000 ML IVC SCH (18:15)
[2021-03-08] MEDS: Amoxicillin/Clavulanate 500 MG TABLET PO SCH (19:45)
[2021-03-09] MEDS: Ondansetron 4 MG/2 ML VIAL IVP PRN ×2 (04:10→17:39)
[2021-03-09] MEDS: carvediloL 25 MG TABLET PO SCH ×2 (10:08→17:38)
[2021-03-09] MEDS: Amoxicillin/Clavulanate 500 MG TABLET PO SCH ×2 (10:08→21:32)
[2021-03-09] MEDS: Isosorbide MONOnitrate (24 HR) 30 MG TAB.ER.24H PO SCH (10:08)
[2021-03-09] MEDS: Aspirin 81 MG TAB.CHEW PO SCH (10:08)
[2021-03-09] MEDS: amLODIPine 5 MG TABLET PO SCH (10:08)
[2021-03-09] MEDS: hydrALAZINE 25 MG TABLET PO SCH ×3 (10:09→17:38)
[2021-03-09] MEDS: Insulin LISPRO 300 UNITS/3 ML VIAL SUBQ SCH ×4 (10:14→21:33)
[2021-03-09] MEDS ORDERED: Ferumoxytol 510 MG in 0.9 % Sodium Chloride 100 ML IVPB ONE (11:19)
[2021-03-09 11:39] LABS: Hematocrit 24.2 % (35.3-44.9); Hemoglobin 8.6 g/dL (11.5-15.4); Mean Corpuscular HGB Conc 35.5 g/dL (31.6-35.5); Mean Corpuscular Hemoglobin 31.6 pg (28.0-33.3); Mean Platelet Volume 9.5 fL (9.4-12.4); Platelet Count 194 K/mcL (140-400); Red Blood Count 2.72 M/mcL (3.82-4.97); Red Cell Distribution Width 12.5 % (11.5-14.5); White Blood Count 10.2 K/mcL (4.3-11.1)
[2021-03-09 12:31] LABS: Potassium 4.4 mEq/L (3.5-5.1)
[2021-03-09] MEDS: Furosemide 40 MG/4 ML VIAL IVP SCH ×2 (13:10→21:32)
[2021-03-10] MEDS: hydrALAZINE 25 MG TABLET PO SCH ×3 (00:35→16:42)
[2021-03-10 01:36] LABS: VBG HCO3 19 mEq/L (21-27); VBG PCO2 36 mmHg (41-51); VBG PH 7.33 pH Units (7.32-7.42); VBG PO2 213 mmHg (25-50)
[2021-03-10 02:01] LABS: Potassium 4.6 mEq/L (3.5-5.1)
[2021-03-10] MEDS: Insulin LISPRO 300 UNITS/3 ML VIAL SUBQ SCH ×4 (08:49→20:55)
[2021-03-10] MEDS: Furosemide 40 MG/4 ML VIAL IVP SCH ×2 (08:49→20:54)
[2021-03-10] MEDS: Aspirin 81 MG TAB.CHEW PO SCH (08:50)
[2021-03-10] MEDS: Amoxicillin/Clavulanate 500 MG TABLET PO SCH ×2 (08:50→20:55)
[2021-03-10] MEDS: amLODIPine 5 MG TABLET PO SCH (08:50)
[2021-03-10] MEDS: Isosorbide MONOnitrate (24 HR) 30 MG TAB.ER.24H PO SCH (08:50)
[2021-03-10] MEDS: carvediloL 25 MG TABLET PO SCH ×2 (08:50→16:42)
[2021-03-10] MEDS ORDERED: Albumin 25% 12.5gm/50mL 12.5 GM/50 ML IV.SOLN IVPB SCH (16:00)
[2021-03-11] MEDS: hydrALAZINE 25 MG TABLET PO SCH ×3 (01:50→16:30)
[2021-03-11] MEDS: Albumin 25% 12.5gm/50mL 12.5 GM/50 ML IV.SOLN IVPB SCH ×3 (04:33→21:39)
[2021-03-11 05:06] LABS: Hematocrit 22.7 % (35.3-44.9); Hemoglobin 8.2 g/dL (11.5-15.4); Mean Corpuscular HGB Conc 36.1 g/dL (31.6-35.5); Mean Corpuscular Hemoglobin 31.8 pg (28.0-33.3); Mean Platelet Volume 9.9 fL (9.4-12.4); Platelet Count 195 K/mcL (140-400); Red Blood Count 2.58 M/mcL (3.82-4.97); Red Cell Distribution Width 12.4 % (11.5-14.5); White Blood Count 12.4 K/mcL (4.3-11.1)
[2021-03-11 05:27] LABS: Calcium 8.3 mg/dL (8.6-10.3); Magnesium 1.9 mg/dL (1.6-2.6); Potassium 4.6 mEq/L (3.5-5.1)
[2021-03-11] MEDS ORDERED: Tolvaptan 15 MG TABLET PO ONE (07:49)
[2021-03-11] MEDS: amLODIPine 5 MG TABLET PO SCH (08:00)
[2021-03-11] MEDS: Amoxicillin/Clavulanate 500 MG TABLET PO SCH ×2 (08:00→21:28)
[2021-03-11] MEDS: Aspirin 81 MG TAB.CHEW PO SCH (08:01)
[2021-03-11] MEDS: carvediloL 25 MG TABLET PO SCH ×2 (08:01→16:30)
[2021-03-11] MEDS: Furosemide 40 MG/4 ML VIAL IVP SCH ×2 (08:01→21:28)
[2021-03-11] MEDS: Isosorbide MONOnitrate (24 HR) 30 MG TAB.ER.24H PO SCH (08:01)
[2021-03-11] MEDS: Insulin LISPRO 300 UNITS/3 ML VIAL SUBQ SCH ×4 (08:20→21:56)
[2021-03-11] MEDS ORDERED: Heparin 1,000 UNITS/500 mL 500 ML ONE (09:06)
[2021-03-11] MEDS ORDERED: *HR* Heparin 5,000 UNIT/ML VIAL ONE (09:11)
[2021-03-11] MEDS ORDERED: *HR* Heparin 10,000 UNIT/10 ML VIAL IV PRN (11:32)
[2021-03-11] MEDS ORDERED: 0.9 % Sodium Chloride 250 ML IVC PRN (11:32)
[2021-03-11] MEDS ORDERED: 0.9 % Sodium Chloride 1,000 ML PRIME SCH (11:45)
[2021-03-11] MEDS ORDERED: 0.9 % Sodium Chloride 1,000 ML ONE (11:48)
[2021-03-11 13:13] LABS: Hepatitis B Surface Antibody < 3.10 mIU/mL
[2021-03-11] MEDS: Ondansetron 4 MG/2 ML VIAL IVP PRN (13:34)
[2021-03-11 13:44] LABS: Hepatitis B Surface Antigen Nonreactive (Nonreactive)
[2021-03-11] MEDS: Acetaminophen 325 MG TABLET PO PRN (22:00)
[2021-03-12] MEDS: hydrALAZINE 25 MG TABLET PO SCH ×4 (00:20→17:15)
[2021-03-12 02:13] LABS: Hematocrit 21.4 % (35.3-44.9); Hemoglobin 7.8 g/dL (11.5-15.4); Mean Corpuscular HGB Conc 36.4 g/dL (31.6-35.5); Mean Corpuscular Hemoglobin 32.4 pg (28.0-33.3); Mean Corpuscular Volume 88.8 fL (83.0-100.0); Mean Platelet Volume 9.7 fL (9.4-12.4); Platelet Count 178 K/mcL (140-400); Red Blood Count 2.41 M/mcL (3.82-4.97); Red Cell Distribution Width 12.7 % (11.5-14.5); White Blood Count 11.1 K/mcL (4.3-11.1)
[2021-03-12 02:54] LABS: Albumin 3.2 g/dL (3.5-5.7); Albumin/Globulin Ratio 1.2 (1.1-2.2); Bilirubin,Direct 0.3 mg/dL (0.0-0.2); Bilirubin,Indirect 0.5 mg/dL (0.0-1.0); Bilirubin,Total 0.8 mg/dL (0.3-1.0); Calcium 8.2 mg/dL (8.6-10.3); Globulin 2.7 g/dL (2.4-3.5); Magnesium 1.8 mg/dL (1.6-2.6); Phosphorous 4.7 mg/dL (2.7-4.5); Potassium 4.1 mEq/L (3.5-5.1); Total Protein 5.9 g/dL (6.4-8.9)
[2021-03-12] MEDS: Albumin 25% 12.5gm/50mL 12.5 GM/50 ML IV.SOLN IVPB SCH (03:32)
[2021-03-12] MEDS ORDERED: 0.9 % Sodium Chloride 250 ML IVC PRN (08:16)
[2021-03-12] MEDS ORDERED: *HR* Heparin 10,000 UNIT/10 ML VIAL IV PRN (08:16)
[2021-03-12] MEDS: Insulin LISPRO 300 UNITS/3 ML VIAL SUBQ SCH ×4 (08:54→22:03)
[2021-03-12] MEDS: carvediloL 25 MG TABLET PO SCH ×2 (08:57→17:15)
[2021-03-12] MEDS: Isosorbide MONOnitrate (24 HR) 30 MG TAB.ER.24H PO SCH (08:57)
[2021-03-12] MEDS: amLODIPine 5 MG TABLET PO SCH (08:57)
[2021-03-12] MEDS: Amoxicillin/Clavulanate 500 MG TABLET PO SCH ×2 (08:58→22:00)
[2021-03-12] MEDS: Aspirin 81 MG TAB.CHEW PO SCH (08:58)
[2021-03-13] MEDS: hydrALAZINE 25 MG TABLET PO SCH ×4 (00:48→23:55)
[2021-03-13 03:44] LABS: Basophils % 0.2 %; Eosinophils # 0.2 K/mcL (0.0-0.6); Hematocrit 19.8 % (35.3-44.9); Immature Granulocytes % 0.5 % (0-4); Lymphocytes # 0.8 K/mcL (0.6-4.6); Lymphocytes % 5.5 %; Mean Corpuscular HGB Conc 35.4 g/dL (31.6-35.5); Mean Corpuscular Volume 90.4 fL (83.0-100.0); Mean Platelet Volume 8.9 fL (9.4-12.4); Monocytes # 1.5 K/mcL (0.0-1.3); Monocytes % 10.2 %; Neutrophils # 12.2 K/mcL (1.6-8.9); Platelet Count 169 K/mcL (140-400); Red Blood Count 2.19 M/mcL (3.82-4.97); Red Cell Distribution Width 13.3 % (11.5-14.5); Segmented Neutrophils % 82.6 %; White Blood Count 14.8 K/mcL (4.3-11.1)
[2021-03-13 04:05] LABS: Calcium 8.4 mg/dL (8.6-10.3); Potassium 4.2 mEq/L (3.5-5.1)
[2021-03-13] MEDS: Insulin LISPRO 300 UNITS/3 ML VIAL SUBQ SCH ×4 (07:25→20:47)
[2021-03-13] MEDS: amLODIPine 5 MG TABLET PO SCH (08:45)
[2021-03-13] MEDS: Isosorbide MONOnitrate (24 HR) 30 MG TAB.ER.24H PO SCH (08:45)
[2021-03-13] MEDS: carvediloL 25 MG TABLET PO SCH ×2 (08:45→17:00)
[2021-03-13] MEDS: Amoxicillin/Clavulanate 500 MG TABLET PO SCH ×2 (08:45→20:48)
[2021-03-13] MEDS: Aspirin 81 MG TAB.CHEW PO SCH (08:45)
[2021-03-13] MEDS ORDERED: *HR* Heparin 10,000 UNIT/10 ML VIAL IV PRN (09:44)
[2021-03-13] MEDS ORDERED: 0.9 % Sodium Chloride 250 ML IVC PRN (09:44)
[2021-03-13] MEDS ORDERED: 0.9 % Sodium Chloride 1,000 ML PRIME SCH (09:45)
[2021-03-13 10:28] LABS: Hematocrit 19.9 % (35.3-44.9)
[2021-03-13] MEDS ORDERED: levoFLOXacin 750 MG/150 ML 750 MG/150 ML BAG IVPB SCH (18:00)
[2021-03-14 07:01] LABS: Basophils % 0.3 %; Eosinophils # 0.2 K/mcL (0.0-0.6); Eosinophils % 1.4 %; Hematocrit 25.4 % (35.3-44.9); Immature Granulocytes % 0.5 % (0-4); Lymphocytes # 0.8 K/mcL (0.6-4.6); Lymphocytes % 5.2 %; Mean Corpuscular Volume 91.4 fL (83.0-100.0); Mean Platelet Volume 9.4 fL (9.4-12.4); Monocytes # 1.4 K/mcL (0.0-1.3); Monocytes % 8.9 %; Platelet Count 152 K/mcL (140-400); Red Blood Count 2.78 M/mcL (3.82-4.97); Red Cell Distribution Width 13.1 % (11.5-14.5); Segmented Neutrophils % 83.7 %; White Blood Count 15.5 K/mcL (4.3-11.1)
[2021-03-14 07:02] LABS: Hemoglobin 8.9 g/dL (11.5-15.4)
[2021-03-14 07:09] LABS: Potassium 3.8 mEq/L (3.5-5.1)
[2021-03-14] MEDS: Insulin LISPRO 300 UNITS/3 ML VIAL SUBQ SCH ×4 (07:33→21:19)
[2021-03-14] MEDS: Ondansetron 4 MG/2 ML VIAL IVP PRN (08:24)
[2021-03-14] MEDS: carvediloL 25 MG TABLET PO SCH ×2 (08:48→17:09)
[2021-03-14] MEDS: Torsemide 20 MG TABLET PO SCH (08:48)
[2021-03-14] MEDS: Aspirin 81 MG TAB.CHEW PO SCH (08:48)
[2021-03-14] MEDS: amLODIPine 5 MG TABLET PO SCH (08:49)
[2021-03-14] MEDS: Amoxicillin/Clavulanate 500 MG TABLET PO SCH (08:49)
[2021-03-14] MEDS: hydrALAZINE 25 MG TABLET PO SCH ×2 (08:49→17:09)
[2021-03-14] MEDS: Isosorbide MONOnitrate (24 HR) 30 MG TAB.ER.24H PO SCH (08:49)
[2021-03-15] MEDS: hydrALAZINE 25 MG TABLET PO SCH ×4 (01:52→17:32)
[2021-03-15 06:58] LABS: Basophils % 0.2 %; Eosinophils # 0.3 K/mcL (0.0-0.6); Hematocrit 26.1 % (35.3-44.9); Hemoglobin 9.2 g/dL (11.5-15.4); Immature Granulocytes % 0.9 % (0-4); Lymphocytes # 0.7 K/mcL (0.6-4.6); Lymphocytes % 3.8 %; Mean Corpuscular HGB Conc 35.2 g/dL (31.6-35.5); Mean Corpuscular Hemoglobin 32.1 pg (28.0-33.3); Mean Corpuscular Volume 90.9 fL (83.0-100.0); Mean Platelet Volume 9.8 fL (9.4-12.4); Monocytes # 1.3 K/mcL (0.0-1.3); Monocytes % 7.5 %; Neutrophils # 14.9 K/mcL (1.6-8.9); Platelet Count 169 K/mcL (140-400); Red Blood Count 2.87 M/mcL (3.82-4.97); Red Cell Distribution Width 13.2 % (11.5-14.5); Segmented Neutrophils % 85.6 %; White Blood Count 17.4 K/mcL (4.3-11.1)
[2021-03-15 07:31] LABS: Calcium 8.2 mg/dL (8.6-10.3)
[2021-03-15] MEDS: Insulin LISPRO 300 UNITS/3 ML VIAL SUBQ SCH ×4 (08:14→20:03)
[2021-03-15] MEDS: carvediloL 25 MG TABLET PO SCH ×3 (09:58→17:32)
[2021-03-15] MEDS ORDERED: *HR* LORazepam 0.5 MG TABLET PO PRN (10:24)
[2021-03-15] MEDS: Isosorbide MONOnitrate (24 HR) 30 MG TAB.ER.24H PO SCH (11:19)
[2021-03-15] MEDS: Torsemide 20 MG TABLET PO SCH (11:19)
[2021-03-15] MEDS: amLODIPine 5 MG TABLET PO SCH (11:19)
[2021-03-15] MEDS: Aspirin 81 MG TAB.CHEW PO SCH (11:19)
[2021-03-15 16:41] LABS: Lactate Dehydrogenase 230 Units/L (140-271); Total Protein 5.3 g/dL (6.4-8.9)
[2021-03-15 17:11] LABS: RBC,Pleural Fluid < 2000 RBC/mcL
[2021-03-15 17:19] LABS: Glucose,Pleural Fluid 139 mg/dL (No Ref Range); LDH,Pleural Fluid 67 Units/L (No Ref Range); Total Protein,Pleural Fluid < 2.0 g/dL
[2021-03-15] MEDS: *HR* Heparin 5,000 UNIT/ML VIAL SQ SCH (17:32)
[2021-03-15] MEDS: levoFLOXacin 500 MG/100 ML 500 MG/100 ML BAG IVPB SCH (17:40)
[2021-03-15 19:20] LABS: Appearance of Pleural Fl Hazy (Clear)
[2021-03-15 19:42] LABS: Eosinophils,Pleural Fluid 0 %
[2021-03-15 19:43] LABS: Basophils,Pleural Fluid 0 %
[2021-03-15] MEDS: Ondansetron 4 MG/2 ML VIAL IVP PRN (23:36)
[2021-03-16] MEDS: hydrALAZINE 25 MG TABLET PO SCH ×3 (01:00→16:43)
[2021-03-16] MEDS: *HR* Heparin 5,000 UNIT/ML VIAL SQ SCH ×2 (05:40→18:31)
[2021-03-16 06:02] LABS: Basophils % 0.2 %; Eosinophils # 0.1 K/mcL (0.0-0.6); Eosinophils % 0.9 %; Hematocrit 23.1 % (35.3-44.9); Hemoglobin 8.1 g/dL (11.5-15.4); Immature Granulocytes % 0.7 % (0-4); Lymphocytes # 0.7 K/mcL (0.6-4.6); Lymphocytes % 4.9 %; Mean Corpuscular HGB Conc 35.1 g/dL (31.6-35.5); Mean Corpuscular Volume 91.3 fL (83.0-100.0); Mean Platelet Volume 9.6 fL (9.4-12.4); Monocytes % 6.6 %; Neutrophils # 12.9 K/mcL (1.6-8.9); Platelet Count 136 K/mcL (140-400); Red Blood Count 2.53 M/mcL (3.82-4.97); Red Cell Distribution Width 13.4 % (11.5-14.5); Segmented Neutrophils % 86.7 %; White Blood Count 14.9 K/mcL (4.3-11.1)
[2021-03-16 06:20] LABS: Calcium 7.9 mg/dL (8.6-10.3)
[2021-03-16] MEDS ORDERED: 0.9 % Sodium Chloride 250 ML IVC PRN (07:19)
[2021-03-16] MEDS ORDERED: *HR* Heparin 10,000 UNIT/10 ML VIAL IV PRN (07:19)
[2021-03-16] MEDS ORDERED: 0.9 % Sodium Chloride 1,000 ML PRIME SCH (07:30)
[2021-03-16] MEDS: carvediloL 25 MG TABLET PO SCH ×2 (07:31→16:43)
[2021-03-16] MEDS: Aspirin 81 MG TAB.CHEW PO SCH (07:31)
[2021-03-16] MEDS: amLODIPine 5 MG TABLET PO SCH (07:31)
[2021-03-16] MEDS: Isosorbide MONOnitrate (24 HR) 30 MG TAB.ER.24H PO SCH (07:31)
[2021-03-16] MEDS: Insulin LISPRO 300 UNITS/3 ML VIAL SUBQ SCH ×4 (07:32→20:30)
[2021-03-17] MEDS: Acetaminophen 325 MG TABLET PO PRN (00:31)
[2021-03-17] MEDS: hydrALAZINE 25 MG TABLET PO SCH ×3 (00:32→17:29)
[2021-03-17 01:05] LABS: Basophils % 0.2 %
[2021-03-17 01:08] LABS: Eosinophils # 0.1 K/mcL (0.0-0.6); Eosinophils % 0.6 %; Hematocrit 22.4 % (35.3-44.9); Hemoglobin 7.7 g/dL (11.5-15.4); Immature Granulocytes % 0.7 % (0-4); Immature Platelets 3.3 % (1.1-6.1); Lymphocytes # 0.7 K/mcL (0.6-4.6); Lymphocytes % 4.6 %; Mean Corpuscular HGB Conc 34.4 g/dL (31.6-35.5); Mean Corpuscular Hemoglobin 31.7 pg (28.0-33.3); Mean Corpuscular Volume 92.2 fL (83.0-100.0); Monocytes # 1.3 K/mcL (0.0-1.3); Neutrophils # 13.7 K/mcL (1.6-8.9); Platelet Count 149 K/mcL (140-400); Red Blood Count 2.43 M/mcL (3.82-4.97); Red Cell Distribution Width 13.6 % (11.5-14.5); Segmented Neutrophils % 85.9 %
[2021-03-17 01:41] LABS: Calcium 7.7 mg/dL (8.6-10.3); Potassium 3.8 mEq/L (3.5-5.1)
[2021-03-17] MEDS: *HR* Heparin 5,000 UNIT/ML VIAL SQ SCH ×2 (05:11→17:29)
[2021-03-17] MEDS: Insulin LISPRO 300 UNITS/3 ML VIAL SUBQ SCH ×4 (08:17→20:13)
[2021-03-17] MEDS: Aspirin 81 MG TAB.CHEW PO SCH (09:14)
[2021-03-17] MEDS: amLODIPine 5 MG TABLET PO SCH (09:14)
[2021-03-17] MEDS: Isosorbide MONOnitrate (24 HR) 30 MG TAB.ER.24H PO SCH (09:14)
[2021-03-17] MEDS: carvediloL 25 MG TABLET PO SCH ×2 (09:14→17:29)
[2021-03-17] MEDS: Ondansetron 4 MG/2 ML VIAL IVP PRN (09:20)
[2021-03-17] MEDS ORDERED: Alteplase (Activase) 100 MG/100 ML VIAL IX ONE (10:30)
[2021-03-17] MEDS ORDERED: Alteplase (Cathflo) 10 MG in 0.9 % Sodium Chloride 30 ML IX ONE (10:37)
[2021-03-17] MEDS: levoFLOXacin 500 MG/100 ML 500 MG/100 ML BAG IVPB SCH (17:29)
[2021-03-18] MEDS: hydrALAZINE 25 MG TABLET PO SCH ×3 (00:07→17:49)
[2021-03-18 03:44] LABS: Basophils % 0.2 %; Eosinophils # 0.2 K/mcL (0.0-0.6); Immature Granulocytes % 0.7 % (0-4); Lymphocytes # 0.8 K/mcL (0.6-4.6); Lymphocytes % 4.8 %; Mean Corpuscular HGB Conc 34.2 g/dL (31.6-35.5); Mean Corpuscular Hemoglobin 31.9 pg (28.0-33.3); Mean Corpuscular Volume 93.1 fL (83.0-100.0); Mean Platelet Volume 9.9 fL (9.4-12.4); Monocytes # 1.2 K/mcL (0.0-1.3); Monocytes % 7.9 %; Neutrophils # 13.4 K/mcL (1.6-8.9); Platelet Count 123 K/mcL (140-400); Red Blood Count 2.04 M/mcL (3.82-4.97); Red Cell Distribution Width 13.9 % (11.5-14.5); Segmented Neutrophils % 85.4 %; White Blood Count 15.7 K/mcL (4.3-11.1)
[2021-03-18 03:47] LABS: Hemoglobin 6.5 g/dL (11.5-15.4)
[2021-03-18 04:03] LABS: Calcium 7.6 mg/dL (8.6-10.3); Potassium 4.3 mEq/L (3.5-5.1)
[2021-03-18] MEDS: *HR* Heparin 5,000 UNIT/ML VIAL SQ SCH ×2 (05:22→17:50)
[2021-03-18] MEDS ORDERED: 0.9 % Sodium Chloride 250 ML ONE (06:15)
[2021-03-18] MEDS: Insulin LISPRO 300 UNITS/3 ML VIAL SUBQ SCH ×4 (08:35→22:24)
[2021-03-18] MEDS: Isosorbide MONOnitrate (24 HR) 30 MG TAB.ER.24H PO SCH (09:01)
[2021-03-18] MEDS: amLODIPine 5 MG TABLET PO SCH (09:01)
[2021-03-18] MEDS: Aspirin 81 MG TAB.CHEW PO SCH (09:01)
[2021-03-18] MEDS: carvediloL 25 MG TABLET PO SCH ×2 (09:01→17:49)
[2021-03-18 13:57] LABS: Hematocrit 24.5 % (35.3-44.9)
[2021-03-18 14:00] LABS: Hemoglobin 8.5 g/dL (11.5-15.4)
[2021-03-19] MEDS: hydrALAZINE 25 MG TABLET PO SCH ×3 (00:36→17:39)
[2021-03-19] MEDS: *HR* Heparin 5,000 UNIT/ML VIAL SQ SCH (06:39)
[2021-03-19 07:01] LABS: Eosinophils % 0.3 %
[2021-03-19 07:03] LABS: Basophils % 0.2 %; Hematocrit 24.6 % (35.3-44.9); Hemoglobin 8.5 g/dL (11.5-15.4); Immature Granulocytes % 0.7 % (0-4); Immature Platelets 4.7 % (1.1-6.1); Lymphocytes # 0.5 K/mcL (0.6-4.6); Lymphocytes % 3.9 %; Mean Corpuscular HGB Conc 34.6 g/dL (31.6-35.5); Mean Corpuscular Hemoglobin 31.1 pg (28.0-33.3); Mean Corpuscular Volume 90.1 fL (83.0-100.0); Mean Platelet Volume 10.5 fL (9.4-12.4); Monocytes # 1.3 K/mcL (0.0-1.3); Monocytes % 9.3 %; Neutrophils # 11.6 K/mcL (1.6-8.9); Platelet Count 109 K/mcL (140-400); Red Blood Count 2.73 M/mcL (3.82-4.97); Red Cell Distribution Width 13.3 % (11.5-14.5); Segmented Neutrophils % 85.6 %; White Blood Count 13.5 K/mcL (4.3-11.1)
[2021-03-19 07:21] LABS: Potassium 4.6 mEq/L (3.5-5.1)
[2021-03-19] MEDS ORDERED: *HR* Heparin 10,000 UNIT/10 ML VIAL IV PRN (07:55)
[2021-03-19] MEDS ORDERED: 0.9 % Sodium Chloride 250 ML IVC PRN (07:55)
[2021-03-19] MEDS ORDERED: 0.9 % Sodium Chloride 1,000 ML PRIME SCH (08:00)
[2021-03-19] MEDS ORDERED: Heparin 1,000 UNITS/500 mL 500 ML ONE (08:14)
[2021-03-19] MEDS ORDERED: Lidocaine/EPI 1:100k 1% 50 ML VIAL ONE (08:14)
[2021-03-19] MEDS ORDERED: *HR* FentaNYL (PF) 100 MCG/2 ML VIAL IVP ONE (08:42)
[2021-03-19] MEDS ORDERED: *HR* Midazolam HCl 2 MG/2 ML VIAL IVP ONE (08:42)
[2021-03-19] MEDS ORDERED: ceFAZolin 2,000 MG in 0.9 % Sodium Chloride 100 ML IVPB ONE (08:43)
[2021-03-19] MEDS ORDERED: *HR* Heparin 5,000 UNIT/ML VIAL ONE (08:51)
[2021-03-19] MEDS ORDERED: 0.9 % Sodium Chloride 500 ML ONE (08:52)
[2021-03-19] MEDS: Insulin LISPRO 300 UNITS/3 ML VIAL SUBQ SCH ×4 (08:58→22:14)
[2021-03-19] MEDS ORDERED: CeFAZolin 2,000MG/50ML DUPLEX 2,000 MG/50 ML BAG IVPB ONE (09:01)
[2021-03-19] MEDS: carvediloL 25 MG TABLET PO SCH ×2 (13:27→17:39)
[2021-03-19] MEDS: Isosorbide MONOnitrate (24 HR) 30 MG TAB.ER.24H PO SCH (13:58)
[2021-03-19] MEDS: amLODIPine 5 MG TABLET PO SCH (13:58)
[2021-03-19] MEDS: Aspirin 81 MG TAB.CHEW PO SCH (13:58)
[2021-03-20] MEDS: hydrALAZINE 25 MG TABLET PO SCH ×4 (00:50→22:06)
[2021-03-20 06:02] LABS: Basophils % 0.2 %; Eosinophils # 0.2 K/mcL (0.0-0.6); Eosinophils % 1.5 %; Hematocrit 22.7 % (35.3-44.9); Hemoglobin 8.1 g/dL (11.5-15.4); Immature Granulocytes % 0.5 % (0-4); Lymphocytes # 0.9 K/mcL (0.6-4.6); Lymphocytes % 6.7 %; Mean Corpuscular HGB Conc 35.7 g/dL (31.6-35.5); Mean Corpuscular Volume 89.7 fL (83.0-100.0); Mean Platelet Volume 10.2 fL (9.4-12.4); Monocytes # 1.5 K/mcL (0.0-1.3); Monocytes % 11.8 %; Neutrophils # 10.3 K/mcL (1.6-8.9); Platelet Count 104 K/mcL (140-400); Red Blood Count 2.53 M/mcL (3.82-4.97); Red Cell Distribution Width 13.4 % (11.5-14.5); Segmented Neutrophils % 79.3 %
[2021-03-20 06:28] LABS: Calcium 7.8 mg/dL (8.6-10.3); Potassium 3.4 mEq/L (3.5-5.1)
[2021-03-20] MEDS ORDERED: *HR* Heparin 10,000 UNIT/10 ML VIAL IV PRN (07:06)
[2021-03-20] MEDS ORDERED: 0.9 % Sodium Chloride 250 ML IVC PRN (07:06)
[2021-03-20] MEDS ORDERED: 0.9 % Sodium Chloride 1,000 ML PRIME SCH (07:15)
[2021-03-20] MEDS: Insulin LISPRO 300 UNITS/3 ML VIAL SUBQ SCH ×4 (07:44→22:06)
[2021-03-20] MEDS ORDERED: Potassium Chloride 20 MEQ, Lidocaine 1% 2 ML in 0.9 % Sodium Chloride 250 ML IVPB ONE (07:45)
[2021-03-20] MEDS: amLODIPine 5 MG TABLET PO SCH (11:10)
[2021-03-20] MEDS: Aspirin 81 MG TAB.CHEW PO SCH ×2 (11:11→11:37)
[2021-03-20] MEDS: Isosorbide MONOnitrate (24 HR) 30 MG TAB.ER.24H PO SCH (11:16)
[2021-03-20] MEDS: carvediloL 25 MG TABLET PO SCH ×2 (11:17→16:41)
[2021-03-20] MEDS: Amoxicillin/Clavulanate 500 MG TABLET PO SCH ×2 (11:17→11:37)
[2021-03-20] MEDS ORDERED: *HR* Propofol 200 MG/20 ML VIAL IVP ONE (11:41)
[2021-03-20] MEDS ORDERED: *HR* FentaNYL (PF) 100 MCG/2 ML VIAL ONE (11:41)
[2021-03-20] MEDS ORDERED: *HR* Succinylcholine 200 MG/10 ML VIAL IVP ONE (11:45)
[2021-03-20] MEDS ORDERED: Ondansetron 4 MG/2 ML VIAL ONE (11:45)
[2021-03-20] MEDS ORDERED: Lidocaine -MPF 2% 2 ML VIAL ONE (11:45)
[2021-03-20] MEDS ORDERED: *HR* Rocuronium Bromide 50 MG/5 ML VIAL ONE (11:45)
[2021-03-20] MEDS ORDERED: Lidocaine HCL 4 ML Topical Solution (Laryng-O-Jet Kit Sterile Pak) TP ONE (11:45)
[2021-03-20] MEDS ORDERED: *HR* Labetalol 20 MG/4 ML SYRINGE IVP PRN (12:13)
[2021-03-20] MEDS ORDERED: Ondansetron 4 MG/2 ML VIAL IVP PRN ×2 (12:13→16:05)
[2021-03-20] MEDS ORDERED: *HR* OxyCODONE Immed Rel 5 MG TABLET PO PRN (12:13)
[2021-03-20] MEDS ORDERED: *HR* HYDROmorphone PF 0.5 MG/0.5 ML SYRINGE IVP PRN (12:13)
[2021-03-20] MEDS ORDERED: Albuterol 2.5 MG/3 ML NEBULIZER IH PRN (12:13)
[2021-03-20] MEDS ORDERED: levoFLOXacin 500 MG/100 ML 500 MG/100 ML BAG IVPB STA (12:41)
[2021-03-20] MEDS ORDERED: EPHEDrine 50 MG/ML VIAL ONE (13:54)
[2021-03-20] MEDS ORDERED: Ketorolac 30 MG/ML VIAL ONE (14:19)
[2021-03-20] MEDS ORDERED: Sugammadex Sodium 200 MG/2 ML VIAL IV ONE (14:19)
[2021-03-20] MEDS ORDERED: Ipratropium/Albuterol Neb 3 ML IH ONE (14:49)
[2021-03-20] MEDS ORDERED: Ipratropium/Albuterol Neb 3 ML ONE (14:52)
[2021-03-20] MEDS ORDERED: *HR* Vasopressin 20 UNIT/ML VIAL ONE (15:02)
[2021-03-20] MEDS ORDERED: Ringers Solution, Lactated 1,000 ML ONE (15:28)
[2021-03-20] MEDS ORDERED: *HR* LORazepam 0.5 MG TABLET PO PRN (16:05)
[2021-03-20] MEDS ORDERED: *HR* Dextrose 50 % in Water (Vial) 50 ML VIAL IVP PRN (16:05)
[2021-03-20] MEDS ORDERED: Naloxone 0.4 MG/ML INJ IVP PRN (16:05)
[2021-03-20] MEDS ORDERED: Dextrose Gel 15 GM/37.5 ML TUBE PO PRN ×2 (16:05)
[2021-03-20] MEDS ORDERED: D5% in Water 1,000 ML IVC PRN (16:05)
[2021-03-20] MEDS ORDERED: Mag Hydrox/Al Hydrox/Simeth 30 ML UDC PO PRN (16:05)
[2021-03-20] MEDS ORDERED: MOM Conc 10 ML UD.LIQ PO PRN (16:05)
[2021-03-20] MEDS ORDERED: Albumin Human 5% 12.5 GM/250 ML IV.SOLN ONE (16:26)
[2021-03-20] MEDS ORDERED: 0.9 % Sodium Chloride 1,000 ML ONE (16:26)
[2021-03-20] MEDS: Albumin Human 5% 12.5 GM/250 ML IV.SOLN IVC SCH ×4 (16:30→18:40)
[2021-03-20] MEDS: 0.9 % Sodium Chloride 1,000 ML IVC SCH (16:39)
[2021-03-20] MEDS ORDERED: Vasopressin 40 UNIT in D5% in Water 100 ML IVC SCH (17:30)
[2021-03-20 18:09] LABS: Hemoglobin 4.4 g/dL (11.5-15.4)
[2021-03-20 18:10] LABS: Hematocrit 12.7 % (35.3-44.9)
[2021-03-20] MEDS ORDERED: 0.9 % Sodium Chloride 250 ML ONE (19:32)
[2021-03-20] MEDS ORDERED: Amoxicillin/Clavulanate 500 MG TABLET PO SCH (21:00)
[2021-03-21] MEDS: 0.9 % Sodium Chloride 1,000 ML IVC SCH (05:16)
[2021-03-21 06:08] LABS: Basophils % 0.1 %
[2021-03-21 06:10] LABS: Hematocrit 30.2 % (35.3-44.9); Hemoglobin 10.7 g/dL (11.5-15.4); Immature Granulocytes % 0.5 % (0-4); Immature Platelets 4.7 % (1.1-6.1); Lymphocytes # 0.4 K/mcL (0.6-4.6); Lymphocytes % 2.3 %; Mean Corpuscular HGB Conc 35.4 g/dL (31.6-35.5); Mean Corpuscular Hemoglobin 31.2 pg (28.0-33.3); Mean Platelet Volume 10.8 fL (9.4-12.4); Monocytes # 0.5 K/mcL (0.0-1.3); Neutrophils # 14.2 K/mcL (1.6-8.9); Red Blood Count 3.43 M/mcL (3.82-4.97); Red Cell Distribution Width 13.4 % (11.5-14.5); Segmented Neutrophils % 94.1 %; White Blood Count 15.1 K/mcL (4.3-11.1)
[2021-03-21 06:11] LABS: Platelet Count 73 K/mcL (140-400)
[2021-03-21 06:37] LABS: Calcium 8.1 mg/dL (8.6-10.3); Potassium 4.7 mEq/L (3.5-5.1)
[2021-03-21] MEDS: Aspirin 81 MG TAB.CHEW PO SCH (08:47)
[2021-03-21] MEDS: amLODIPine 5 MG TABLET PO SCH (08:47)
[2021-03-21] MEDS: Isosorbide MONOnitrate (24 HR) 30 MG TAB.ER.24H PO SCH (08:48)
[2021-03-21] MEDS: carvediloL 25 MG TABLET PO SCH ×2 (08:48→18:26)
[2021-03-21] MEDS: hydrALAZINE 25 MG TABLET PO SCH ×2 (08:48→16:32)
[2021-03-21] MEDS: Insulin LISPRO 300 UNITS/3 ML VIAL SUBQ SCH ×4 (08:53→20:18)
[2021-03-21] MEDS ORDERED: SODIUM CHLORIDE 0.9% IVPB ONE (09:53)
[2021-03-21] MEDS ORDERED: DESMOPRESSIN ACETATE IVPB ONE (09:53)
[2021-03-21] MEDS: Amoxicillin/Clavulanate 500 MG TABLET PO SCH ×2 (11:21→18:26)
[2021-03-21] MEDS ORDERED: 0.9 % Sodium Chloride 250 ML IVC PRN (11:59)
[2021-03-21] MEDS ORDERED: 0.9 % Sodium Chloride 1,000 ML PRIME SCH (12:00)
[2021-03-21] MEDS ORDERED: Ipratropium/Albuterol Neb 3 ML IH PRN (16:35)
[2021-03-22] MEDS: hydrALAZINE 25 MG TABLET PO SCH ×3 (01:14→16:09)
[2021-03-22 04:08] LABS: Basophils % 0.1 %
[2021-03-22 04:09] LABS: Hematocrit 27.3 % (35.3-44.9); Hemoglobin 9.2 g/dL (11.5-15.4); Immature Granulocytes % 0.5 % (0-4); Lymphocytes # 0.7 K/mcL (0.6-4.6); Lymphocytes % 3.5 %; Mean Corpuscular HGB Conc 33.7 g/dL (31.6-35.5); Mean Corpuscular Hemoglobin 30.4 pg (28.0-33.3); Mean Corpuscular Volume 90.1 fL (83.0-100.0); Mean Platelet Volume 10.6 fL (9.4-12.4); Monocytes # 1.3 K/mcL (0.0-1.3); Monocytes % 6.8 %; Red Blood Count 3.03 M/mcL (3.82-4.97); Segmented Neutrophils % 89.1 %; White Blood Count 18.6 K/mcL (4.3-11.1)
[2021-03-22 04:11] LABS: Neutrophils # 16.6 K/mcL (1.6-8.9); Platelet Count 76 K/mcL (140-400)
[2021-03-22 04:20] LABS: Calcium 7.9 mg/dL (8.6-10.3); Magnesium 1.9 mg/dL (1.6-2.6); Phosphorous 2.2 mg/dL (2.7-4.5); Potassium 3.9 mEq/L (3.5-5.1)
[2021-03-22] MEDS: amLODIPine 5 MG TABLET PO SCH (08:31)
[2021-03-22] MEDS: Isosorbide MONOnitrate (24 HR) 30 MG TAB.ER.24H PO SCH (08:31)
[2021-03-22] MEDS: Aspirin 81 MG TAB.CHEW PO SCH (08:31)
[2021-03-22] MEDS: carvediloL 25 MG TABLET PO SCH ×2 (08:31→16:09)
[2021-03-22] MEDS: Amoxicillin/Clavulanate 500 MG TABLET PO SCH (08:31)
[2021-03-22] MEDS: Insulin LISPRO 300 UNITS/3 ML VIAL SUBQ SCH ×4 (08:32→20:15)
[2021-03-22] MEDS ORDERED: 0.9 % Sodium Chloride 250 ML IVC PRN (12:40)
[2021-03-22] MEDS ORDERED: *HR* Heparin 10,000 UNIT/10 ML VIAL IV PRN (12:40)
[2021-03-22] MEDS: Insulin DETEMIR 100 UNIT/ML X5UNITS SUBQ SCH (20:15)
[2021-03-23] MEDS: hydrALAZINE 25 MG TABLET PO SCH ×4 (01:13→23:25)
[2021-03-23 03:57] LABS: Basophils % 0.1 %
[2021-03-23 03:59] LABS: Hematocrit 24.9 % (35.3-44.9); Hemoglobin 8.4 g/dL (11.5-15.4); Immature Granulocytes % 0.6 % (0-4); Immature Platelets 4.5 % (1.1-6.1); Lymphocytes # 0.7 K/mcL (0.6-4.6); Lymphocytes % 4.1 %; Mean Corpuscular HGB Conc 33.7 g/dL (31.6-35.5); Mean Corpuscular Hemoglobin 30.8 pg (28.0-33.3); Mean Corpuscular Volume 91.2 fL (83.0-100.0); Mean Platelet Volume 10.5 fL (9.4-12.4); Monocytes # 1.1 K/mcL (0.0-1.3); Monocytes % 6.3 %; Neutrophils # 14.9 K/mcL (1.6-8.9); Nucleated Red Blood Cells 0.1 /100 WBC (0); Red Blood Count 2.73 M/mcL (3.82-4.97); Red Cell Distribution Width 13.7 % (11.5-14.5); Segmented Neutrophils % 88.9 %; White Blood Count 16.8 K/mcL (4.3-11.1)
[2021-03-23 04:07] LABS: Platelet Count 79 K/mcL (140-400)
[2021-03-23 04:11] LABS: Calcium 7.9 mg/dL (8.6-10.3); Magnesium 2.3 mg/dL (1.6-2.6); Phosphorous 5.6 mg/dL (2.7-4.5); Potassium 4.1 mEq/L (3.5-5.1)
[2021-03-23] MEDS: amLODIPine 5 MG TABLET PO SCH (08:23)
[2021-03-23] MEDS: Isosorbide MONOnitrate (24 HR) 30 MG TAB.ER.24H PO SCH (08:24)
[2021-03-23] MEDS: carvediloL 25 MG TABLET PO SCH ×2 (08:24→16:25)
[2021-03-23] MEDS: Amoxicillin/Clavulanate 500 MG TABLET PO SCH (08:24)
[2021-03-23] MEDS: Insulin LISPRO 300 UNITS/3 ML VIAL SUBQ SCH ×4 (08:24→19:33)
[2021-03-23] MEDS: Aspirin 81 MG TAB.CHEW PO SCH (08:24)
[2021-03-23] MEDS ORDERED: 0.9 % Sodium Chloride 250 ML IVC PRN (17:08)
[2021-03-23] MEDS: Insulin DETEMIR 100 UNIT/ML X5UNITS SUBQ SCH (20:07)
[2021-03-24] MEDS ORDERED: *HR* Heparin 10,000 UNIT/10 ML VIAL IV PRN (00:01)
[2021-03-24 03:45] LABS: Basophils % 0.1 %; Eosinophils % 0.1 %; Hematocrit 23.8 % (35.3-44.9); Hemoglobin 8.2 g/dL (11.5-15.4); Mean Corpuscular HGB Conc 34.5 g/dL (31.6-35.5)
[2021-03-24 03:47] LABS: Immature Granulocytes % 0.8 % (0-4); Immature Platelets 5.6 % (1.1-6.1); Lymphocytes # 0.8 K/mcL (0.6-4.6); Lymphocytes % 5.1 %; Mean Corpuscular Hemoglobin 30.9 pg (28.0-33.3); Mean Corpuscular Volume 89.8 fL (83.0-100.0); Mean Platelet Volume 10.7 fL (9.4-12.4); Monocytes # 1.1 K/mcL (0.0-1.3); Monocytes % 6.9 %; Neutrophils # 13.8 K/mcL (1.6-8.9); Platelet Count 82 K/mcL (140-400); Red Blood Count 2.65 M/mcL (3.82-4.97); Red Cell Distribution Width 13.4 % (11.5-14.5); White Blood Count 15.8 K/mcL (4.3-11.1)
[2021-03-24 04:04] LABS: Calcium 7.8 mg/dL (8.6-10.3); Magnesium 2.2 mg/dL (1.6-2.6); Phosphorous 4.5 mg/dL (2.7-4.5); Potassium 4.5 mEq/L (3.5-5.1)
[2021-03-24] MEDS: Insulin LISPRO 300 UNITS/3 ML VIAL SUBQ SCH ×4 (07:52→19:49)
[2021-03-24] MEDS: amLODIPine 5 MG TABLET PO SCH (07:53)
[2021-03-24] MEDS: hydrALAZINE 25 MG TABLET PO SCH ×2 (07:53→17:28)
[2021-03-24] MEDS: Aspirin 81 MG TAB.CHEW PO SCH (07:53)
[2021-03-24] MEDS: Amoxicillin/Clavulanate 500 MG TABLET PO SCH (07:53)
[2021-03-24] MEDS: Isosorbide MONOnitrate (24 HR) 30 MG TAB.ER.24H PO SCH (07:53)
[2021-03-24] MEDS: carvediloL 25 MG TABLET PO SCH ×2 (07:53→17:28)
[2021-03-24] MEDS ORDERED: Ferumoxytol 510 MG in 0.9 % Sodium Chloride 100 ML IVPB ONE (13:00)
[2021-03-24] MEDS: *HR* Heparin 5,000 UNIT/ML VIAL SQ SCH (17:29)
[2021-03-24] MEDS: Insulin DETEMIR 100 UNIT/ML X5UNITS SUBQ SCH (19:49)
[2021-03-25] MEDS: hydrALAZINE 25 MG TABLET PO SCH ×4 (00:45→17:41)
[2021-03-25] MEDS: Acetaminophen 325 MG TABLET PO PRN (01:21)
[2021-03-25 05:49] LABS: Basophils % 0.1 %
[2021-03-25 05:51] LABS: Eosinophils # 0.1 K/mcL (0.0-0.6); Eosinophils % 0.8 %; Hematocrit 23.2 % (35.3-44.9); Hemoglobin 7.9 g/dL (11.5-15.4); Immature Granulocytes % 0.8 % (0-4); Immature Platelets 4.9 % (1.1-6.1); Lymphocytes # 0.8 K/mcL (0.6-4.6); Lymphocytes % 5.4 %; Mean Corpuscular HGB Conc 34.1 g/dL (31.6-35.5); Mean Corpuscular Hemoglobin 31.7 pg (28.0-33.3); Mean Corpuscular Volume 93.2 fL (83.0-100.0); Mean Platelet Volume 10.1 fL (9.4-12.4); Monocytes % 9.9 %; Neutrophils # 12.1 K/mcL (1.6-8.9); Nucleated Red Blood Cells 0.1 /100 WBC (0); Platelet Count 100 K/mcL (140-400); Red Blood Count 2.49 M/mcL (3.82-4.97); Red Cell Distribution Width 14.3 % (11.5-14.5); White Blood Count 14.6 K/mcL (4.3-11.1)
[2021-03-25 05:53] LABS: Monocytes # 1.5 K/mcL (0.0-1.3)
[2021-03-25 06:08] LABS: Calcium 7.9 mg/dL (8.6-10.3); Phosphorous 2.1 mg/dL (2.7-4.5); Potassium 4.1 mEq/L (3.5-5.1)
[2021-03-25] MEDS: *HR* Heparin 5,000 UNIT/ML VIAL SQ SCH ×2 (06:25→17:25)
[2021-03-25 06:38] LABS: Hepatitis B Surface Antigen Nonreactive (Nonreactive)
[2021-03-25 07:07] LABS: Hepatitis B Core IgM Nonreactive (Nonreactive); Hepatitis C Virus Antibody Nonreactive (Nonreactive)
[2021-03-25 07:09] LABS: Hepatitis A Antibody IgM Nonreactive (Nonreactive)
[2021-03-25] MEDS: amLODIPine 5 MG TABLET PO SCH (09:07)
[2021-03-25] MEDS: Isosorbide MONOnitrate (24 HR) 30 MG TAB.ER.24H PO SCH (09:08)
[2021-03-25] MEDS: Amoxicillin/Clavulanate 500 MG TABLET PO SCH (09:08)
[2021-03-25] MEDS: carvediloL 25 MG TABLET PO SCH ×2 (09:08→17:27)
[2021-03-25] MEDS: Aspirin 81 MG TAB.CHEW PO SCH (09:09)
[2021-03-25] MEDS: Insulin LISPRO 300 UNITS/3 ML VIAL SUBQ SCH ×4 (09:41→20:58)
[2021-03-26] MEDS: hydrALAZINE 25 MG TABLET PO SCH ×3 (01:29→17:11)
[2021-03-26 01:38] LABS: Basophils % 0.1 %; Eosinophils # 0.2 K/mcL (0.0-0.6); Eosinophils % 1.7 %; Hematocrit 21.4 % (35.3-44.9); Hemoglobin 7.2 g/dL (11.5-15.4); Immature Granulocytes % 0.7 % (0-4); Lymphocytes % 7.5 %; Mean Corpuscular HGB Conc 33.6 g/dL (31.6-35.5); Mean Corpuscular Hemoglobin 31.6 pg (28.0-33.3); Mean Corpuscular Volume 93.9 fL (83.0-100.0); Mean Platelet Volume 10.4 fL (9.4-12.4); Monocytes # 1.4 K/mcL (0.0-1.3); Platelet Count 100 K/mcL (140-400); Red Blood Count 2.28 M/mcL (3.82-4.97); Red Cell Distribution Width 14.6 % (11.5-14.5); White Blood Count 13.7 K/mcL (4.3-11.1)
[2021-03-26 02:01] LABS: Calcium 7.8 mg/dL (8.6-10.3); Magnesium 1.8 mg/dL (1.6-2.6); Phosphorous 2.6 mg/dL (2.7-4.5); Potassium 4.8 mEq/L (3.5-5.1)
[2021-03-26] MEDS: *HR* Heparin 5,000 UNIT/ML VIAL SQ SCH (05:42)
[2021-03-26] MEDS: Insulin LISPRO 300 UNITS/3 ML VIAL SUBQ SCH ×4 (09:15→20:44)
[2021-03-26] MEDS: amLODIPine 5 MG TABLET PO SCH (09:16)
[2021-03-26] MEDS: Aspirin 81 MG TAB.CHEW PO SCH (09:16)
[2021-03-26] MEDS: Amoxicillin/Clavulanate 500 MG TABLET PO SCH (09:17)
[2021-03-26] MEDS: Pantoprazole 40 MG VIAL IVP SCH (09:17)
[2021-03-26] MEDS: carvediloL 25 MG TABLET PO SCH ×2 (09:17→17:11)
[2021-03-26 09:40] LABS: Hematocrit 20.6 % (35.3-44.9); Hemoglobin 6.9 g/dL (11.5-15.4)
[2021-03-26] MEDS: Isosorbide MONOnitrate (24 HR) 30 MG TAB.ER.24H PO SCH (09:47)
[2021-03-26] MEDS ORDERED: *HR* Midazolam HCl 2 MG/2 ML VIAL IVP ONE (14:19)
[2021-03-26] MEDS ORDERED: *HR* FentaNYL (PF) 100 MCG/2 ML VIAL IVP ONE (14:19)
[2021-03-26] MEDS ORDERED: Lidocaine/EPI 1:100k 1% 50 ML VIAL ONE (14:27)
[2021-03-26] MEDS ORDERED: Heparin 1,000 UNITS/500 mL 500 ML ONE (14:27)
[2021-03-26] MEDS ORDERED: *HR* Heparin 5,000 UNIT/ML VIAL ONE (14:56)
[2021-03-26] MEDS ORDERED: 0.9 % Sodium Chloride 250 ML ONE (15:40)
[2021-03-26 23:07] LABS: Basophils % 0.1 %; Eosinophils # 0.1 K/mcL (0.0-0.6); Eosinophils % 0.8 %; Hematocrit 26.3 % (35.3-44.9); Hemoglobin 9.1 g/dL (11.5-15.4); Immature Granulocytes % 0.9 % (0-4); Lymphocytes # 0.8 K/mcL (0.6-4.6); Mean Corpuscular HGB Conc 34.6 g/dL (31.6-35.5); Mean Corpuscular Hemoglobin 31.3 pg (28.0-33.3); Mean Corpuscular Volume 90.4 fL (83.0-100.0); Mean Platelet Volume 10.3 fL (9.4-12.4); Monocytes # 1.5 K/mcL (0.0-1.3); Monocytes % 9.9 %; Neutrophils # 12.8 K/mcL (1.6-8.9); Nucleated Red Blood Cells 0.1 /100 WBC (0); Platelet Count 106 K/mcL (140-400); Red Blood Count 2.91 M/mcL (3.82-4.97); Segmented Neutrophils % 83.3 %; White Blood Count 15.3 K/mcL (4.3-11.1)
[2021-03-27] MEDS: hydrALAZINE 25 MG TABLET PO SCH ×4 (01:34→17:01)
[2021-03-27 06:31] LABS: Hematocrit 24.2 % (35.3-44.9); Hemoglobin 8.4 g/dL (11.5-15.4); Mean Corpuscular HGB Conc 34.7 g/dL (31.6-35.5); Mean Corpuscular Hemoglobin 31.8 pg (28.0-33.3); Mean Corpuscular Volume 91.7 fL (83.0-100.0); Mean Platelet Volume 10.2 fL (9.4-12.4); Platelet Count 101 K/mcL (140-400); Red Blood Count 2.64 M/mcL (3.82-4.97); Red Cell Distribution Width 14.5 % (11.5-14.5)
[2021-03-27 06:51] LABS: Calcium 7.8 mg/dL (8.6-10.3); Potassium 5.2 mEq/L (3.5-5.1)
[2021-03-27] MEDS ORDERED: *HR* Heparin 10,000 UNIT/10 ML VIAL IV PRN (07:23)
[2021-03-27] MEDS ORDERED: 0.9 % Sodium Chloride 250 ML IVC PRN (07:23)
[2021-03-27] MEDS ORDERED: 0.9 % Sodium Chloride 1,000 ML PRIME SCH (07:30)
[2021-03-27] MEDS: carvediloL 25 MG TABLET PO SCH ×3 (07:48→17:01)
[2021-03-27] MEDS: amLODIPine 5 MG TABLET PO SCH ×2 (07:48→12:10)
[2021-03-27] MEDS: Isosorbide MONOnitrate (24 HR) 30 MG TAB.ER.24H PO SCH ×2 (07:48→12:10)
[2021-03-27] MEDS: Amoxicillin/Clavulanate 500 MG TABLET PO SCH ×2 (07:48→12:10)
[2021-03-27] MEDS: Pantoprazole 40 MG VIAL IVP SCH (07:48)
[2021-03-27] MEDS: Insulin LISPRO 300 UNITS/3 ML VIAL SUBQ SCH ×4 (07:49→20:16)
[2021-03-27] MEDS: Piperacillin/Tazobactam 3.375 GM in 0.9 % Sodium Chloride Mini Bag 100 ML IVPB SCH (17:33)
[2021-03-28] MEDS: hydrALAZINE 25 MG TABLET PO SCH ×3 (02:06→17:00)
[2021-03-28] MEDS: Piperacillin/Tazobactam 3.375 GM in 0.9 % Sodium Chloride Mini Bag 100 ML IVPB SCH ×2 (05:14→20:31)
[2021-03-28 05:38] LABS: Hematocrit 18.9 % (35.3-44.9); Hemoglobin 6.3 g/dL (11.5-15.4); Immature Platelets 3.6 % (1.1-6.1); Mean Corpuscular HGB Conc 33.3 g/dL (31.6-35.5); Mean Corpuscular Hemoglobin 31.5 pg (28.0-33.3); Mean Corpuscular Volume 94.5 fL (83.0-100.0); Red Cell Distribution Width 15.4 % (11.5-14.5); White Blood Count 13.9 K/mcL (4.3-11.1)
[2021-03-28 06:01] LABS: Calcium 7.5 mg/dL (8.6-10.3); Potassium 3.5 mEq/L (3.5-5.1)
[2021-03-28] MEDS: Insulin LISPRO 300 UNITS/3 ML VIAL SUBQ SCH ×4 (07:41→20:19)
[2021-03-28] MEDS: Pantoprazole 40 MG VIAL IVP SCH (07:48)
[2021-03-28] MEDS: Isosorbide MONOnitrate (24 HR) 30 MG TAB.ER.24H PO SCH (08:51)
[2021-03-28] MEDS: carvediloL 25 MG TABLET PO SCH ×2 (08:51→17:00)
[2021-03-28] MEDS: amLODIPine 5 MG TABLET PO SCH (08:51)
[2021-03-28] MEDS ORDERED: DESMOPRESSIN ACETATE IVPB ONE (08:57)
[2021-03-28] MEDS ORDERED: SODIUM CHLORIDE 0.9% IVPB ONE (08:57)
[2021-03-28] MEDS ORDERED: 0.9 % Sodium Chloride 250 ML ONE ×3 (14:06→23:43)
[2021-03-29] MEDS: hydrALAZINE 25 MG TABLET PO SCH ×3 (00:09→17:21)
[2021-03-29 01:22] LABS: Hemoglobin 10.6 g/dL (11.5-15.4); Mean Corpuscular HGB Conc 34.2 g/dL (31.6-35.5); Mean Corpuscular Hemoglobin 30.8 pg (28.0-33.3); Mean Corpuscular Volume 90.1 fL (83.0-100.0); Platelet Count 101 K/mcL (140-400); Red Blood Count 3.44 M/mcL (3.82-4.97); Red Cell Distribution Width 13.3 % (11.5-14.5); White Blood Count 14.8 K/mcL (4.3-11.1)
[2021-03-29 01:40] LABS: Calcium 7.6 mg/dL (8.6-10.3); Potassium 3.6 mEq/L (3.5-5.1)
[2021-03-29] MEDS: Piperacillin/Tazobactam 3.375 GM in 0.9 % Sodium Chloride Mini Bag 100 ML IVPB SCH ×2 (05:24→17:21)
[2021-03-29] MEDS ORDERED: *HR* Heparin 10,000 UNIT/10 ML VIAL IV PRN (07:24)
[2021-03-29] MEDS ORDERED: 0.9 % Sodium Chloride 250 ML IVC PRN (07:24)
[2021-03-29] MEDS: Insulin LISPRO 300 UNITS/3 ML VIAL SUBQ SCH ×4 (07:30→20:48)
[2021-03-29] MEDS ORDERED: 0.9 % Sodium Chloride 1,000 ML PRIME SCH (07:30)
[2021-03-29] MEDS: Isosorbide MONOnitrate (24 HR) 30 MG TAB.ER.24H PO SCH (08:53)
[2021-03-29] MEDS: amLODIPine 5 MG TABLET PO SCH (08:53)
[2021-03-29] MEDS: carvediloL 25 MG TABLET PO SCH ×2 (08:53→17:21)
[2021-03-29] MEDS: Furosemide 40 MG TABLET PO SCH ×2 (10:20→17:21)
[2021-03-29] MEDS: Nystatin SUSP 5 ML UD.LIQ PO SCH ×2 (17:21→21:37)
[2021-03-30] MEDS: hydrALAZINE 25 MG TABLET PO SCH ×4 (00:58→16:24)
[2021-03-30] MEDS: Piperacillin/Tazobactam 3.375 GM in 0.9 % Sodium Chloride Mini Bag 100 ML IVPB SCH ×2 (06:26→16:25)
[2021-03-30 06:49] LABS: Hematocrit 31.6 % (35.3-44.9); Hemoglobin 10.8 g/dL (11.5-15.4); Mean Corpuscular HGB Conc 34.2 g/dL (31.6-35.5); Mean Corpuscular Hemoglobin 30.9 pg (28.0-33.3); Mean Corpuscular Volume 90.5 fL (83.0-100.0); Mean Platelet Volume 9.5 fL (9.4-12.4); Platelet Count 111 K/mcL (140-400); Red Blood Count 3.49 M/mcL (3.82-4.97); Red Cell Distribution Width 13.6 % (11.5-14.5); White Blood Count 13.8 K/mcL (4.3-11.1)
[2021-03-30 07:05] LABS: Potassium 3.4 mEq/L (3.5-5.1)
[2021-03-30] MEDS: Insulin LISPRO 300 UNITS/3 ML VIAL SUBQ SCH ×4 (08:19→20:01)
[2021-03-30] MEDS: Isosorbide MONOnitrate (24 HR) 30 MG TAB.ER.24H PO SCH ×2 (08:33→12:59)
[2021-03-30] MEDS: Nystatin SUSP 5 ML UD.LIQ PO SCH ×5 (08:33→20:26)
[2021-03-30] MEDS: carvediloL 25 MG TABLET PO SCH ×3 (08:33→16:24)
[2021-03-30] MEDS: amLODIPine 5 MG TABLET PO SCH ×2 (08:33→12:59)
[2021-03-30] MEDS: Furosemide 40 MG TABLET PO SCH ×3 (08:33→16:24)
[2021-03-30] MEDS ORDERED: *HR* Heparin 10,000 UNIT/10 ML VIAL IV PRN (08:42)
[2021-03-30] MEDS ORDERED: 0.9 % Sodium Chloride 250 ML IVC PRN (08:42)
[2021-03-31] MEDS: hydrALAZINE 25 MG TABLET PO SCH ×4 (00:42→17:33)
[2021-03-31] MEDS: Acetaminophen 325 MG TABLET PO PRN (01:09)
[2021-03-31 01:59] LABS: Basophils % 0.2 %; Eosinophils # 0.1 K/mcL (0.0-0.6); Hematocrit 29.7 % (35.3-44.9); Immature Granulocytes % 0.8 % (0-4); Lymphocytes # 0.9 K/mcL (0.6-4.6); Lymphocytes % 6.3 %; Mean Corpuscular HGB Conc 33.7 g/dL (31.6-35.5); Mean Corpuscular Hemoglobin 31.2 pg (28.0-33.3); Mean Corpuscular Volume 92.5 fL (83.0-100.0); Mean Platelet Volume 10.3 fL (9.4-12.4); Monocytes # 1.4 K/mcL (0.0-1.3); Monocytes % 10.5 %; Platelet Count 123 K/mcL (140-400); Red Blood Count 3.21 M/mcL (3.82-4.97); Red Cell Distribution Width 13.9 % (11.5-14.5); Segmented Neutrophils % 81.2 %; White Blood Count 13.6 K/mcL (4.3-11.1)
[2021-03-31 02:13] LABS: Calcium 7.9 mg/dL (8.6-10.3); Potassium 3.8 mEq/L (3.5-5.1)
[2021-03-31] MEDS: Piperacillin/Tazobactam 3.375 GM in 0.9 % Sodium Chloride Mini Bag 100 ML IVPB SCH ×2 (06:01→17:33)
[2021-03-31] MEDS: Insulin LISPRO 300 UNITS/3 ML VIAL SUBQ SCH ×4 (07:53→20:46)
[2021-03-31] MEDS: carvediloL 25 MG TABLET PO SCH ×2 (08:05→17:33)
[2021-03-31] MEDS: Isosorbide MONOnitrate (24 HR) 30 MG TAB.ER.24H PO SCH (08:05)
[2021-03-31] MEDS: amLODIPine 5 MG TABLET PO SCH (08:05)
[2021-03-31] MEDS: Nystatin SUSP 5 ML UD.LIQ PO SCH ×4 (08:05→20:46)
[2021-03-31] MEDS: Furosemide 40 MG TABLET PO SCH ×2 (08:05→17:33)
[2021-03-31] MEDS: *HR* Heparin 5,000 UNIT/ML VIAL SQ SCH (17:41)
[2021-04-01] MEDS: hydrALAZINE 25 MG TABLET PO SCH ×3 (00:25→17:09)
[2021-04-01] MEDS: Piperacillin/Tazobactam 3.375 GM in 0.9 % Sodium Chloride Mini Bag 100 ML IVPB SCH ×2 (05:23→17:09)
[2021-04-01] MEDS: *HR* Heparin 5,000 UNIT/ML VIAL SQ SCH ×3 (05:24→18:06)
[2021-04-01 06:02] LABS: Basophils % 0.3 %; Eosinophils # 0.2 K/mcL (0.0-0.6); Eosinophils % 1.9 %; Hematocrit 31.8 % (35.3-44.9); Hemoglobin 10.6 g/dL (11.5-15.4); Immature Granulocytes % 0.8 % (0-4); Lymphocytes # 0.8 K/mcL (0.6-4.6); Lymphocytes % 6.5 %; Mean Corpuscular HGB Conc 33.3 g/dL (31.6-35.5); Mean Corpuscular Hemoglobin 30.7 pg (28.0-33.3); Mean Corpuscular Volume 92.2 fL (83.0-100.0); Mean Platelet Volume 9.2 fL (9.4-12.4); Monocytes # 1.1 K/mcL (0.0-1.3); Monocytes % 8.9 %; Neutrophils # 9.8 K/mcL (1.6-8.9); Platelet Count 118 K/mcL (140-400); Red Blood Count 3.45 M/mcL (3.82-4.97); Red Cell Distribution Width 14.4 % (11.5-14.5); Segmented Neutrophils % 81.6 %
[2021-04-01 06:23] LABS: Potassium 3.8 mEq/L (3.5-5.1)
[2021-04-01] MEDS: carvediloL 25 MG TABLET PO SCH ×2 (07:48→17:09)
[2021-04-01] MEDS: Furosemide 40 MG TABLET PO SCH ×2 (07:48→17:09)
[2021-04-01] MEDS: Isosorbide MONOnitrate (24 HR) 30 MG TAB.ER.24H PO SCH (07:48)
[2021-04-01] MEDS: amLODIPine 5 MG TABLET PO SCH (07:49)
[2021-04-01] MEDS: Nystatin SUSP 5 ML UD.LIQ PO SCH ×4 (07:49→21:10)
[2021-04-01] MEDS: Insulin LISPRO 300 UNITS/3 ML VIAL SUBQ SCH ×4 (11:26→21:10)
[2021-04-01] MEDS: Acetaminophen 325 MG TABLET PO PRN (21:10)
[2021-04-02] MEDS: hydrALAZINE 25 MG TABLET PO SCH ×3 (01:23→17:22)
[2021-04-02 05:08] LABS: Basophils % 0.3 %; Eosinophils # 0.2 K/mcL (0.0-0.6); Eosinophils % 2.3 %; Hematocrit 31.7 % (35.3-44.9); Hemoglobin 10.9 g/dL (11.5-15.4); Immature Granulocytes % 0.6 % (0-4); Lymphocytes % 9.3 %; Mean Corpuscular HGB Conc 34.4 g/dL (31.6-35.5); Mean Corpuscular Hemoglobin 31.3 pg (28.0-33.3); Mean Corpuscular Volume 91.1 fL (83.0-100.0); Mean Platelet Volume 9.3 fL (9.4-12.4); Monocytes % 9.6 %; Neutrophils # 7.9 K/mcL (1.6-8.9); Platelet Count 118 K/mcL (140-400); Red Blood Count 3.48 M/mcL (3.82-4.97); Red Cell Distribution Width 14.2 % (11.5-14.5); Segmented Neutrophils % 77.9 %; White Blood Count 10.2 K/mcL (4.3-11.1)
[2021-04-02 05:28] LABS: Calcium 7.8 mg/dL (8.6-10.3); Potassium 3.7 mEq/L (3.5-5.1)
[2021-04-02] MEDS: *HR* Heparin 5,000 UNIT/ML VIAL SQ SCH ×2 (05:52→17:23)
[2021-04-02] MEDS: Piperacillin/Tazobactam 3.375 GM in 0.9 % Sodium Chloride Mini Bag 100 ML IVPB SCH ×2 (06:00→17:22)
[2021-04-02] MEDS ORDERED: *HR* Heparin 10,000 UNIT/10 ML VIAL IV PRN (07:29)
[2021-04-02] MEDS ORDERED: 0.9 % Sodium Chloride 250 ML IVC PRN (07:29)
[2021-04-02] MEDS ORDERED: 0.9 % Sodium Chloride 1,000 ML PRIME SCH (07:30)
[2021-04-02] MEDS: Insulin LISPRO 300 UNITS/3 ML VIAL SUBQ SCH ×4 (11:01→19:55)
[2021-04-02] MEDS: Isosorbide MONOnitrate (24 HR) 30 MG TAB.ER.24H PO SCH (12:30)
[2021-04-02] MEDS: Furosemide 40 MG TABLET PO SCH ×2 (12:30→17:22)
[2021-04-02] MEDS: amLODIPine 5 MG TABLET PO SCH (12:30)
[2021-04-02] MEDS: carvediloL 25 MG TABLET PO SCH ×2 (12:32→17:22)
[2021-04-02] MEDS: Nystatin SUSP 5 ML UD.LIQ PO SCH ×4 (12:32→20:04)
[2021-04-03] MEDS: hydrALAZINE 25 MG TABLET PO SCH ×3 (00:23→16:49)
[2021-04-03 05:07] LABS: Basophils # 0.1 K/mcL (0.0-0.2); Basophils % 0.5 %; Eosinophils # 0.2 K/mcL (0.0-0.6); Eosinophils % 1.7 %; Hematocrit 31.5 % (35.3-44.9); Hemoglobin 10.4 g/dL (11.5-15.4); Immature Granulocytes % 0.6 % (0-4); Lymphocytes # 1.2 K/mcL (0.6-4.6); Lymphocytes % 10.9 %; Mean Platelet Volume 9.8 fL (9.4-12.4); Monocytes # 1.2 K/mcL (0.0-1.3); Monocytes % 11.5 %; Neutrophils # 7.9 K/mcL (1.6-8.9); Platelet Count 110 K/mcL (140-400); Red Blood Count 3.35 M/mcL (3.82-4.97); Red Cell Distribution Width 14.6 % (11.5-14.5); Segmented Neutrophils % 74.8 %; White Blood Count 10.5 K/mcL (4.3-11.1)
[2021-04-03 05:27] LABS: Calcium 8.2 mg/dL (8.6-10.3); Potassium 4.3 mEq/L (3.5-5.1)
[2021-04-03] MEDS: *HR* Heparin 5,000 UNIT/ML VIAL SQ SCH ×2 (05:29→16:50)
[2021-04-03] MEDS: Piperacillin/Tazobactam 3.375 GM in 0.9 % Sodium Chloride Mini Bag 100 ML IVPB SCH ×2 (05:29→16:49)
[2021-04-03] MEDS: Insulin LISPRO 300 UNITS/3 ML VIAL SUBQ SCH ×4 (07:53→19:52)
[2021-04-03] MEDS: amLODIPine 5 MG TABLET PO SCH (07:56)
[2021-04-03] MEDS: carvediloL 25 MG TABLET PO SCH ×2 (07:57→16:49)
[2021-04-03] MEDS: Furosemide 40 MG TABLET PO SCH ×2 (07:57→16:49)
[2021-04-03] MEDS: Nystatin SUSP 5 ML UD.LIQ PO SCH ×4 (07:57→21:36)
[2021-04-03] MEDS: Isosorbide MONOnitrate (24 HR) 30 MG TAB.ER.24H PO SCH (07:57)
[2021-04-04] MEDS: hydrALAZINE 25 MG TABLET PO SCH ×3 (00:21→17:12)
[2021-04-04 04:00] LABS: Basophils # 0.1 K/mcL (0.0-0.2); Basophils % 0.5 %; Eosinophils # 0.2 K/mcL (0.0-0.6); Eosinophils % 2.6 %; Hematocrit 30.1 % (35.3-44.9); Immature Granulocytes % 0.7 % (0-4); Lymphocytes # 1.2 K/mcL (0.6-4.6); Lymphocytes % 12.7 %; Mean Corpuscular HGB Conc 33.2 g/dL (31.6-35.5); Mean Corpuscular Hemoglobin 31.2 pg (28.0-33.3); Mean Corpuscular Volume 93.8 fL (83.0-100.0); Mean Platelet Volume 10.1 fL (9.4-12.4); Monocytes # 1.1 K/mcL (0.0-1.3); Monocytes % 11.9 %; Neutrophils # 6.5 K/mcL (1.6-8.9); Platelet Count 108 K/mcL (140-400); Red Blood Count 3.21 M/mcL (3.82-4.97); Red Cell Distribution Width 14.6 % (11.5-14.5); Segmented Neutrophils % 71.6 %; White Blood Count 9.1 K/mcL (4.3-11.1)
[2021-04-04 04:18] LABS: Calcium 7.9 mg/dL (8.6-10.3); Potassium 4.6 mEq/L (3.5-5.1)
[2021-04-04] MEDS: *HR* Heparin 5,000 UNIT/ML VIAL SQ SCH ×2 (05:39→17:13)
[2021-04-04] MEDS: Piperacillin/Tazobactam 3.375 GM in 0.9 % Sodium Chloride Mini Bag 100 ML IVPB SCH (05:40)
[2021-04-04] MEDS ORDERED: 0.9 % Sodium Chloride 250 ML IVC PRN (07:37)
[2021-04-04] MEDS ORDERED: *HR* Heparin 10,000 UNIT/10 ML VIAL IV PRN ×2 (07:37)
[2021-04-04] MEDS ORDERED: 0.9 % Sodium Chloride 1,000 ML PRIME SCH (07:45)
[2021-04-04] MEDS: Nystatin SUSP 5 ML UD.LIQ PO SCH ×4 (10:26→20:06)
[2021-04-04] MEDS: Isosorbide MONOnitrate (24 HR) 30 MG TAB.ER.24H PO SCH (10:26)
[2021-04-04] MEDS: Insulin LISPRO 300 UNITS/3 ML VIAL SUBQ SCH ×4 (10:26→20:06)
[2021-04-04] MEDS: carvediloL 25 MG TABLET PO SCH ×2 (10:26→17:12)
[2021-04-04] MEDS: Furosemide 40 MG TABLET PO SCH ×2 (10:26→17:12)
[2021-04-04] MEDS: amLODIPine 5 MG TABLET PO SCH (10:26)
[2021-04-04] MEDS: Acetaminophen 325 MG TABLET PO PRN (20:49)
[2021-04-05] MEDS: hydrALAZINE 25 MG TABLET PO SCH ×3 (01:05→17:48)
[2021-04-05] MEDS: *HR* Heparin 5,000 UNIT/ML VIAL SQ SCH (06:25)
[2021-04-05] MEDS: Furosemide 40 MG TABLET PO SCH ×2 (07:37→17:48)
[2021-04-05] MEDS: Isosorbide MONOnitrate (24 HR) 30 MG TAB.ER.24H PO SCH (07:37)
[2021-04-05] MEDS: carvediloL 25 MG TABLET PO SCH ×2 (07:37→17:48)
[2021-04-05] MEDS: amLODIPine 5 MG TABLET PO SCH (07:37)
[2021-04-05] MEDS: Insulin LISPRO 300 UNITS/3 ML VIAL SUBQ SCH ×3 (07:38→17:48)
[2021-04-05] MEDS: Nystatin SUSP 5 ML UD.LIQ PO SCH ×3 (07:38→17:49)
[2021-04-05 07:54] LABS: Hematocrit 32.6 % (35.3-44.9); Hemoglobin 10.9 g/dL (11.5-15.4); Mean Corpuscular HGB Conc 33.4 g/dL (31.6-35.5); Mean Corpuscular Hemoglobin 31.1 pg (28.0-33.3); Mean Corpuscular Volume 93.1 fL (83.0-100.0); Mean Platelet Volume 9.9 fL (9.4-12.4); Platelet Count 111 K/mcL (140-400); Red Cell Distribution Width 14.9 % (11.5-14.5); White Blood Count 7.7 K/mcL (4.3-11.1)
[2021-04-05 08:14] LABS: Calcium 8.5 mg/dL (8.6-10.3); Potassium 3.5 mEq/L (3.5-5.1)
[2021-04-05 16:49] VITALS: BP 149/65
[2021-04-05 18:27] LABS: Adenovirus Not Detected (Not Detect); Bordetella Pertussis Not Detected (Not Detect); Chlamydophila pneumoniae Not Detected (Not Detect); Coronavirus 229E Not Detected (Not Detect); Coronavirus HKU1 Not Detected (Not Detect); Coronavirus NL63 Not Detected (Not Detect); Coronavirus OC43 Not Detected (Not Detect); Human Metapneumovirus Not Detected (Not Detect); Human Rhinovirus/Enterovirus Not Detected (Not Detect); Influenza A Subtype 2009 H1 Not Detected (Not Detect); Influenza B Not Detected (Not Detect); Mycoplasma pneumoniae Not Detected (Not Detect); Parainfluenza Virus 1 Not Detected (Not Detect); Parainfluenza Virus 2 Not Detected (Not Detect); Parainfluenza Virus 3 Not Detected (Not Detect); Parainfluenza Virus 4 Not Detected (Not Detect); Respiratory Syncytial Virus Not Detected (Not Detect); SARS-CoV-2 Not Detected (Not Detect)
== END 2021-04-05 18:09 | DRG 853 ==
LOC: 2NENU 10:38 → EMEROOARM 10:38 → SUATTDRO 17:45 → 2NENU 18:41 → SUATTDRO 03-06 13:16 → ICNU 03-20 15:01 → 2NNU 03-23 20:33
PROVIDERS: ADMIT Internal Medicine; ATTEND Internal Medicine
PROC: IRPERMA (2021-03-19 13:00)

== ENCOUNTER 2021-04-22 00:12 | Inpatient (IN) ==
[2021-04-22 01:34] LABS: Calcium 8.7 mg/dL (8.6-10.3); Potassium 3.9 mEq/L (3.5-5.1)
[2021-04-22 01:37] LABS: Troponin I 0.26 ng/mL (< 0.04)
[2021-04-22 02:04] LABS: Basophils % 0.1 %; Immature Granulocytes % 1.4 % (0-4); Lymphocytes # 1.3 K/mcL (0.6-4.6); Lymphocytes % 9.6 %; Mean Corpuscular HGB Conc 34.4 g/dL (31.6-35.5); Mean Corpuscular Hemoglobin 36.1 pg (28.0-33.3); Mean Corpuscular Volume 104.9 fL (83.0-100.0); Mean Platelet Volume 10.6 fL (9.4-12.4); Monocytes # 0.7 K/mcL (0.0-1.3); Monocytes % 5.5 %; Neutrophils # 11.1 K/mcL (1.6-8.9); Nucleated Red Blood Cells 0.3 /100 WBC (0); Platelet Count 225 K/mcL (140-400); Red Blood Count 1.22 M/mcL (3.82-4.97); Red Cell Distribution Width 19.5 % (11.5-14.5); Segmented Neutrophils % 83.4 %; White Blood Count 13.3 K/mcL (4.3-11.1)
[2021-04-22 02:07] LABS: Hematocrit 12.8 % (35.3-44.9); Hemoglobin 4.4 g/dL (11.5-15.4)
[2021-04-22] MEDS ORDERED: 0.9 % Sodium Chloride 1,000 ML ONE (03:29)
[2021-04-22 04:35] LABS: INR 1.1
[2021-04-22 04:38] LABS: Activated Partial Thrombo Time 26.6 Seconds (26.0-36.0)
[2021-04-22] MEDS ORDERED: Furosemide 20 MG/2 ML VIAL IVP ONE (05:29)
[2021-04-22 06:38] LABS: Basophils % 0.2 %; Eosinophils % 0.1 %; Hematocrit 20.6 % (35.3-44.9); Hemoglobin 6.9 g/dL (11.5-15.4); Lymphocytes # 1.3 K/mcL (0.6-4.6); Lymphocytes % 8.3 %; Mean Corpuscular HGB Conc 33.5 g/dL (31.6-35.5); Mean Corpuscular Hemoglobin 33.7 pg (28.0-33.3); Mean Corpuscular Volume 100.5 fL (83.0-100.0); Mean Platelet Volume 10.7 fL (9.4-12.4); Neutrophils # 13.2 K/mcL (1.6-8.9); Nucleated Red Blood Cells 0.4 /100 WBC (0); Platelet Count 247 K/mcL (140-400); Red Blood Count 2.05 M/mcL (3.82-4.97); Segmented Neutrophils % 83.4 %; White Blood Count 15.8 K/mcL (4.3-11.1)
[2021-04-22] MEDS ORDERED: Ondansetron 4 MG/2 ML VIAL IVP PRN (08:18)
[2021-04-22] MEDS ORDERED: Naloxone 0.4 MG/ML INJ IVP PRN (08:18)
[2021-04-22 08:21] LABS: Bilirubin,Urine Negative (Negative); Blood,Urine Small (Negative); Clarity,Urine Clear (Clear); Color,Urine Yellow (Yellow); Glucose,Urine (UA) 50 mg/dL (Normal); Hyaline Casts,Urine Few per lpf (None Seen); Ketones,Urine Negative (Negative); Leukocyte Esterase,Urine Negative (Negative); Nitrite,Urine Negative (Negative); PH,Urine 6.5 pH Units (5.0-8.0); Protein,Urine 200 mg/dL (Neg-Trace); RBC,Urine 0-3 per hpf (0-3); Specific Gravity,Urine 1.016 (1.010-1.025); Squamous Epithelial Cell,Urine Few per hpf (None-Few); Urobilinogen,Urine Normal (Normal); WBC,Urine 0-3 per hpf (0-3)
[2021-04-22] MEDS ORDERED: 0.9 % Sodium Chloride 250 ML IVC PRN (09:17)
[2021-04-22] MEDS ORDERED: *HR* Heparin 10,000 UNIT/10 ML VIAL IV PRN (09:17)
[2021-04-22] MEDS ORDERED: 0.9 % Sodium Chloride 1,000 ML PRIME SCH (09:30)
[2021-04-22] MEDS: Acetaminophen 325 MG TABLET PO PRN (13:42)
[2021-04-22] MEDS ORDERED: hydrALAZINE 25 MG TABLET PO SCH (14:00)
[2021-04-22] MEDS: Darbepoetin 25 MCG/0.42 ML SYRINGE SQ SCH (14:35)
[2021-04-22] MEDS: Isosorbide MONOnitrate (24 HR) 30 MG TAB.ER.24H PO SCH (14:36)
[2021-04-22] MEDS: Aspirin 81 MG TAB.CHEW PO SCH (14:36)
[2021-04-22 16:31] LABS: Hematocrit 27.5 % (35.3-44.9); Mean Corpuscular HGB Conc 33.5 g/dL (31.6-35.5); Mean Corpuscular Hemoglobin 31.9 pg (28.0-33.3); Mean Corpuscular Volume 95.5 fL (83.0-100.0); Mean Platelet Volume 10.3 fL (9.4-12.4); Platelet Count 217 K/mcL (140-400); Red Blood Count 2.88 M/mcL (3.82-4.97); Red Cell Distribution Width 17.3 % (11.5-14.5); White Blood Count 14.8 K/mcL (4.3-11.1)
[2021-04-22 16:33] LABS: Hemoglobin 9.2 g/dL (11.5-15.4)
[2021-04-22] MEDS: Furosemide 40 MG TABLET PO SCH (16:38)
[2021-04-22] MEDS: hydrALAZINE 25 MG TABLET PO SCH (16:38)
[2021-04-22] MEDS: carvediloL 25 MG TABLET PO SCH (16:38)
[2021-04-22 17:07] LABS: Hepatitis B Surface Antibody < 3.10 mIU/mL
[2021-04-22 17:18] LABS: Hepatitis B Surface Antigen Nonreactive (Nonreactive)
[2021-04-23] MEDS: hydrALAZINE 25 MG TABLET PO SCH ×5 (00:25→23:45)
[2021-04-23 01:20] LABS: Hematocrit 26.6 % (35.3-44.9); Hemoglobin 9.2 g/dL (11.5-15.4); Mean Corpuscular HGB Conc 34.6 g/dL (31.6-35.5); Mean Corpuscular Volume 95.3 fL (83.0-100.0); Platelet Count 219 K/mcL (140-400); Red Blood Count 2.79 M/mcL (3.82-4.97); Red Cell Distribution Width 18.6 % (11.5-14.5); White Blood Count 14.2 K/mcL (4.3-11.1)
[2021-04-23 01:45] LABS: Calcium 8.7 mg/dL (8.6-10.3); Magnesium 1.8 mg/dL (1.6-2.6); Phosphorous 2.6 mg/dL (2.7-4.5); Potassium 3.6 mEq/L (3.5-5.1)
[2021-04-23] MEDS ORDERED: 0.9 % Sodium Chloride 250 ML IVC PRN (07:57)
[2021-04-23] MEDS ORDERED: *HR* Heparin 10,000 UNIT/10 ML VIAL IV PRN (07:57)
[2021-04-23] MEDS: Furosemide 40 MG TABLET PO SCH ×3 (08:00→17:28)
[2021-04-23] MEDS: Aspirin 81 MG TAB.CHEW PO SCH ×2 (08:01→12:28)
[2021-04-23] MEDS: carvediloL 25 MG TABLET PO SCH ×3 (08:01→17:28)
[2021-04-23] MEDS: Isosorbide MONOnitrate (24 HR) 30 MG TAB.ER.24H PO SCH ×2 (08:01→12:28)
[2021-04-23 11:57] LABS: Troponin I 0.42 ng/mL (< 0.04)
[2021-04-23 14:21] LABS: Lactate Dehydrogenase 563 Units/L (140-271); Total Protein 8.5 g/dL (6.4-8.9)
[2021-04-23] MEDS ORDERED: *HR* Dextrose 50 % in Water (Vial) 50 ML VIAL IVP PRN (15:01)
[2021-04-23] MEDS ORDERED: Dextrose Gel 15 GM/37.5 ML TUBE PO PRN ×2 (15:01)
[2021-04-23] MEDS ORDERED: D5% in Water 1,000 ML IVC PRN (15:01)
[2021-04-23 17:01] LABS: Glucose,Pleural Fluid 177 mg/dL (No Ref Range); LDH,Pleural Fluid 103 Units/L (No Ref Range); Total Protein,Pleural Fluid < 2.0 g/dL
[2021-04-23 17:25] LABS: RBC,Pleural Fluid < 2000 RBC/mcL
[2021-04-23] MEDS: Insulin LISPRO 300 UNITS/3 ML VIAL SUBQ SCH (17:34)
[2021-04-23 18:11] LABS: Appearance of Pleural Fl Clear (Clear)
[2021-04-23 18:22] LABS: Basophils,Pleural Fluid 0 %; Eosinophils,Pleural Fluid 0 %
[2021-04-24 06:42] LABS: Hematocrit 32.3 % (35.3-44.9); Hemoglobin 10.7 g/dL (11.5-15.4); Mean Corpuscular HGB Conc 33.1 g/dL (31.6-35.5); Mean Corpuscular Hemoglobin 31.9 pg (28.0-33.3); Mean Corpuscular Volume 96.4 fL (83.0-100.0); Mean Platelet Volume 10.2 fL (9.4-12.4); Platelet Count 203 K/mcL (140-400); Red Blood Count 3.35 M/mcL (3.82-4.97); Red Cell Distribution Width 19.1 % (11.5-14.5)
[2021-04-24 07:02] LABS: Calcium 8.7 mg/dL (8.6-10.3); Potassium 3.8 mEq/L (3.5-5.1)
[2021-04-24] MEDS: Insulin LISPRO 300 UNITS/3 ML VIAL SUBQ SCH ×3 (08:28→17:34)
[2021-04-24] MEDS: carvediloL 25 MG TABLET PO SCH ×2 (08:29→17:34)
[2021-04-24] MEDS: Aspirin 81 MG TAB.CHEW PO SCH (08:29)
[2021-04-24] MEDS: Isosorbide MONOnitrate (24 HR) 30 MG TAB.ER.24H PO SCH (08:30)
[2021-04-24] MEDS: Furosemide 40 MG TABLET PO SCH ×2 (08:30→17:34)
[2021-04-24] MEDS: hydrALAZINE 25 MG TABLET PO SCH ×2 (08:30→17:20)
[2021-04-25] MEDS: hydrALAZINE 25 MG TABLET PO SCH ×3 (00:43→17:04)
[2021-04-25 06:44] LABS: Hematocrit 31.5 % (35.3-44.9); Hemoglobin 10.6 g/dL (11.5-15.4); Mean Corpuscular HGB Conc 33.7 g/dL (31.6-35.5); Mean Corpuscular Hemoglobin 32.5 pg (28.0-33.3); Mean Corpuscular Volume 96.6 fL (83.0-100.0); Mean Platelet Volume 10.7 fL (9.4-12.4); Platelet Count 198 K/mcL (140-400); Red Blood Count 3.26 M/mcL (3.82-4.97); Red Cell Distribution Width 19.1 % (11.5-14.5); White Blood Count 10.5 K/mcL (4.3-11.1)
[2021-04-25 07:01] LABS: Calcium 8.7 mg/dL (8.6-10.3)
[2021-04-25] MEDS: Insulin LISPRO 300 UNITS/3 ML VIAL SUBQ SCH ×3 (08:02→17:04)
[2021-04-25] MEDS: Aspirin 81 MG TAB.CHEW PO SCH (08:02)
[2021-04-25] MEDS: carvediloL 25 MG TABLET PO SCH ×2 (08:02→17:04)
[2021-04-25] MEDS: Isosorbide MONOnitrate (24 HR) 30 MG TAB.ER.24H PO SCH (08:03)
[2021-04-25] MEDS: Furosemide 40 MG TABLET PO SCH ×2 (08:03→17:04)
[2021-04-25] MEDS ORDERED: *HR* Heparin 10,000 UNIT/10 ML VIAL IV PRN (08:53)
[2021-04-25] MEDS ORDERED: 0.9 % Sodium Chloride 250 ML IVC PRN (08:53)
[2021-04-25] MEDS ORDERED: 0.9 % Sodium Chloride 1,000 ML PRIME SCH (09:00)
[2021-04-26] MEDS: hydrALAZINE 25 MG TABLET PO SCH ×3 (00:58→17:50)
[2021-04-26 05:00] LABS: Hematocrit 31.1 % (35.3-44.9); Hemoglobin 10.2 g/dL (11.5-15.4); Mean Corpuscular HGB Conc 32.8 g/dL (31.6-35.5); Mean Corpuscular Hemoglobin 32.5 pg (28.0-33.3); Mean Platelet Volume 10.4 fL (9.4-12.4); Platelet Count 189 K/mcL (140-400); Red Blood Count 3.14 M/mcL (3.82-4.97); Red Cell Distribution Width 20.4 % (11.5-14.5); White Blood Count 10.1 K/mcL (4.3-11.1)
[2021-04-26 05:19] LABS: Calcium 8.3 mg/dL (8.6-10.3); Potassium 4.4 mEq/L (3.5-5.1)
[2021-04-26 05:25] LABS: Fluid Source for Cholesterol PLEURAL FLUID
[2021-04-26] MEDS: carvediloL 25 MG TABLET PO SCH ×2 (09:23→17:50)
[2021-04-26] MEDS: Isosorbide MONOnitrate (24 HR) 30 MG TAB.ER.24H PO SCH (09:23)
[2021-04-26] MEDS: Insulin LISPRO 300 UNITS/3 ML VIAL SUBQ SCH ×3 (09:23→17:05)
[2021-04-26] MEDS: Aspirin 81 MG TAB.CHEW PO SCH (09:23)
[2021-04-26] MEDS: Furosemide 40 MG TABLET PO SCH ×2 (09:23→17:51)
[2021-04-26 14:44] LABS: Cholesterol,Body Fluid 15 mg/dL
[2021-04-27] MEDS: hydrALAZINE 25 MG TABLET PO SCH ×3 (00:20→17:53)
[2021-04-27] MEDS ORDERED: *HR* Heparin 10,000 UNIT/10 ML VIAL IV PRN (08:02)
[2021-04-27] MEDS ORDERED: 0.9 % Sodium Chloride 250 ML IVC PRN (08:02)
[2021-04-27 08:09] LABS: Hematocrit 30.4 % (35.3-44.9); Hemoglobin 10.3 g/dL (11.5-15.4); Mean Corpuscular HGB Conc 33.9 g/dL (31.6-35.5); Mean Corpuscular Hemoglobin 33.7 pg (28.0-33.3); Mean Corpuscular Volume 99.3 fL (83.0-100.0); Mean Platelet Volume 10.3 fL (9.4-12.4); Platelet Count 187 K/mcL (140-400); Red Blood Count 3.06 M/mcL (3.82-4.97); Red Cell Distribution Width 19.7 % (11.5-14.5); White Blood Count 9.7 K/mcL (4.3-11.1)
[2021-04-27 08:27] LABS: Calcium 8.8 mg/dL (8.6-10.3); Potassium 4.5 mEq/L (3.5-5.1)
[2021-04-27] MEDS: Aspirin 81 MG TAB.CHEW PO SCH (08:28)
[2021-04-27] MEDS: carvediloL 25 MG TABLET PO SCH ×2 (08:28→17:53)
[2021-04-27] MEDS: Insulin LISPRO 300 UNITS/3 ML VIAL SUBQ SCH ×3 (08:28→17:53)
[2021-04-27] MEDS: Furosemide 40 MG TABLET PO SCH ×2 (08:28→17:53)
[2021-04-27] MEDS: Isosorbide MONOnitrate (24 HR) 30 MG TAB.ER.24H PO SCH (08:29)
[2021-04-28] MEDS: hydrALAZINE 25 MG TABLET PO SCH ×3 (00:30→17:15)
[2021-04-28 01:28] LABS: Hematocrit 30.6 % (35.3-44.9); Hemoglobin 9.9 g/dL (11.5-15.4); Mean Corpuscular HGB Conc 32.4 g/dL (31.6-35.5); Mean Corpuscular Hemoglobin 32.5 pg (28.0-33.3); Mean Corpuscular Volume 100.3 fL (83.0-100.0); Mean Platelet Volume 9.8 fL (9.4-12.4); Platelet Count 157 K/mcL (140-400); Red Blood Count 3.05 M/mcL (3.82-4.97); Red Cell Distribution Width 19.9 % (11.5-14.5); White Blood Count 7.9 K/mcL (4.3-11.1)
[2021-04-28 01:44] LABS: Calcium 8.4 mg/dL (8.6-10.3)
[2021-04-28] MEDS: Insulin LISPRO 300 UNITS/3 ML VIAL SUBQ SCH ×3 (07:59→17:15)
[2021-04-28] MEDS: carvediloL 25 MG TABLET PO SCH ×2 (08:27→17:14)
[2021-04-28] MEDS: Furosemide 40 MG TABLET PO SCH ×2 (08:27→17:15)
[2021-04-28] MEDS: Isosorbide MONOnitrate (24 HR) 30 MG TAB.ER.24H PO SCH (08:27)
[2021-04-28] MEDS: Aspirin 81 MG TAB.CHEW PO SCH (08:27)
[2021-04-29] MEDS: hydrALAZINE 25 MG TABLET PO SCH ×3 (01:37→15:57)
[2021-04-29 03:10] LABS: Hematocrit 31.5 % (35.3-44.9); Hemoglobin 10.3 g/dL (11.5-15.4); Mean Corpuscular HGB Conc 32.7 g/dL (31.6-35.5); Mean Corpuscular Hemoglobin 32.5 pg (28.0-33.3); Mean Corpuscular Volume 99.4 fL (83.0-100.0); Mean Platelet Volume 10.1 fL (9.4-12.4); Platelet Count 165 K/mcL (140-400); Red Blood Count 3.17 M/mcL (3.82-4.97); Red Cell Distribution Width 18.9 % (11.5-14.5); White Blood Count 8.5 K/mcL (4.3-11.1)
[2021-04-29 03:27] LABS: Calcium 8.6 mg/dL (8.6-10.3)
[2021-04-29] MEDS: Insulin LISPRO 300 UNITS/3 ML VIAL SUBQ SCH ×3 (08:17→16:02)
[2021-04-29] MEDS: carvediloL 25 MG TABLET PO SCH ×2 (08:18→16:00)
[2021-04-29] MEDS: Aspirin 81 MG TAB.CHEW PO SCH (08:19)
[2021-04-29] MEDS: Furosemide 40 MG TABLET PO SCH ×2 (08:19→16:00)
[2021-04-29] MEDS: Isosorbide MONOnitrate (24 HR) 30 MG TAB.ER.24H PO SCH (08:20)
[2021-04-29] MEDS: Darbepoetin 25 MCG/0.42 ML SYRINGE SQ SCH (15:56)
[2021-04-30] MEDS: hydrALAZINE 25 MG TABLET PO SCH ×4 (00:17→23:19)
[2021-04-30 05:36] LABS: Hematocrit 29.7 % (35.3-44.9); Hemoglobin 9.8 g/dL (11.5-15.4); Mean Corpuscular Hemoglobin 32.8 pg (28.0-33.3); Mean Corpuscular Volume 99.3 fL (83.0-100.0); Mean Platelet Volume 10.1 fL (9.4-12.4); Platelet Count 170 K/mcL (140-400); Red Blood Count 2.99 M/mcL (3.82-4.97); Red Cell Distribution Width 18.6 % (11.5-14.5); White Blood Count 9.3 K/mcL (4.3-11.1)
[2021-04-30 05:55] LABS: Calcium 8.6 mg/dL (8.6-10.3); Potassium 4.3 mEq/L (3.5-5.1)
[2021-04-30] MEDS ORDERED: *HR* Heparin 10,000 UNIT/10 ML VIAL IV PRN (07:38)
[2021-04-30] MEDS ORDERED: 0.9 % Sodium Chloride 250 ML IVC PRN (07:38)
[2021-04-30] MEDS ORDERED: 0.9 % Sodium Chloride 1,000 ML PRIME SCH (07:45)
[2021-04-30] MEDS: Aspirin 81 MG TAB.CHEW PO SCH (08:11)
[2021-04-30] MEDS: Insulin LISPRO 300 UNITS/3 ML VIAL SUBQ SCH ×3 (08:12→17:39)
[2021-04-30] MEDS: carvediloL 25 MG TABLET PO SCH ×2 (08:13→15:34)
[2021-04-30] MEDS: Furosemide 40 MG TABLET PO SCH (08:13)
[2021-04-30] MEDS: Isosorbide MONOnitrate (24 HR) 30 MG TAB.ER.24H PO SCH (08:14)
[2021-04-30] MEDS: Melatonin 3 MG TABLET PO PRN (21:44)
[2021-05-01 01:19] LABS: Hemoglobin 10.5 g/dL (11.5-15.4); Mean Corpuscular HGB Conc 31.8 g/dL (31.6-35.5); Mean Corpuscular Hemoglobin 32.2 pg (28.0-33.3); Mean Corpuscular Volume 101.2 fL (83.0-100.0); Mean Platelet Volume 10.3 fL (9.4-12.4); Platelet Count 158 K/mcL (140-400); Red Blood Count 3.26 M/mcL (3.82-4.97); Red Cell Distribution Width 18.6 % (11.5-14.5); White Blood Count 8.4 K/mcL (4.3-11.1)
[2021-05-01 01:36] LABS: Calcium 8.4 mg/dL (8.6-10.3)
[2021-05-01] MEDS: hydrALAZINE 25 MG TABLET PO SCH ×3 (08:06→23:51)
[2021-05-01] MEDS: Isosorbide MONOnitrate (24 HR) 30 MG TAB.ER.24H PO SCH (08:06)
[2021-05-01] MEDS: Aspirin 81 MG TAB.CHEW PO SCH (08:06)
[2021-05-01] MEDS: carvediloL 25 MG TABLET PO SCH ×2 (08:06→16:43)
[2021-05-01] MEDS: Furosemide 40 MG TABLET PO SCH (08:06)
[2021-05-01] MEDS: Insulin LISPRO 300 UNITS/3 ML VIAL SUBQ SCH ×3 (08:07→16:43)
[2021-05-01] MEDS: Melatonin 3 MG TABLET PO PRN (21:08)
[2021-05-01] MEDS: Acetaminophen 325 MG TABLET PO PRN (23:51)
[2021-05-02 03:43] LABS: Hematocrit 30.3 % (35.3-44.9); Mean Corpuscular Hemoglobin 32.7 pg (28.0-33.3); Platelet Count 171 K/mcL (140-400); Red Blood Count 3.06 M/mcL (3.82-4.97); Red Cell Distribution Width 18.1 % (11.5-14.5); White Blood Count 9.7 K/mcL (4.3-11.1)
[2021-05-02 04:00] LABS: Calcium 8.8 mg/dL (8.6-10.3); Potassium 4.4 mEq/L (3.5-5.1)
[2021-05-02] MEDS: Furosemide 40 MG TABLET PO SCH (07:30)
[2021-05-02] MEDS: Aspirin 81 MG TAB.CHEW PO SCH (07:30)
[2021-05-02] MEDS: carvediloL 25 MG TABLET PO SCH ×2 (07:30→16:48)
[2021-05-02] MEDS: Insulin LISPRO 300 UNITS/3 ML VIAL SUBQ SCH ×3 (07:31→16:43)
[2021-05-02] MEDS: Isosorbide MONOnitrate (24 HR) 30 MG TAB.ER.24H PO SCH (07:31)
[2021-05-02] MEDS: hydrALAZINE 25 MG TABLET PO SCH ×2 (07:31→16:48)
[2021-05-02] MEDS ORDERED: *HR* Heparin 10,000 UNIT/10 ML VIAL IV PRN (07:45)
[2021-05-02] MEDS ORDERED: 0.9 % Sodium Chloride 1,000 ML PRIME SCH (07:45)
[2021-05-02] MEDS ORDERED: 0.9 % Sodium Chloride 250 ML IVC PRN (07:45)
[2021-05-03] MEDS: hydrALAZINE 25 MG TABLET PO SCH ×3 (05:16→16:49)
[2021-05-03 06:04] LABS: Hematocrit 31.6 % (35.3-44.9); Hemoglobin 10.9 g/dL (11.5-15.4); Mean Corpuscular HGB Conc 34.5 g/dL (31.6-35.5); Mean Corpuscular Hemoglobin 34.2 pg (28.0-33.3); Mean Corpuscular Volume 99.1 fL (83.0-100.0); Mean Platelet Volume 9.9 fL (9.4-12.4); Platelet Count 184 K/mcL (140-400); Red Blood Count 3.19 M/mcL (3.82-4.97); Red Cell Distribution Width 17.8 % (11.5-14.5); White Blood Count 7.6 K/mcL (4.3-11.1)
[2021-05-03] MEDS: Isosorbide MONOnitrate (24 HR) 30 MG TAB.ER.24H PO SCH (07:29)
[2021-05-03] MEDS: Aspirin 81 MG TAB.CHEW PO SCH (07:29)
[2021-05-03] MEDS: carvediloL 25 MG TABLET PO SCH ×2 (07:30→16:50)
[2021-05-03] MEDS: Insulin LISPRO 300 UNITS/3 ML VIAL SUBQ SCH ×3 (07:30→16:41)
[2021-05-03] MEDS: Furosemide 40 MG TABLET PO SCH (07:30)
[2021-05-03] MEDS: Sennosides/Docusate Sodium TABLET PO SCH (10:15)
[2021-05-03] MEDS: polyethylene glycoL 3350 17 GM POWD.PACK PO SCH (10:15)
[2021-05-04] MEDS: hydrALAZINE 25 MG TABLET PO SCH ×3 (00:18→17:04)
[2021-05-04] MEDS ORDERED: 0.9 % Sodium Chloride 250 ML IVC PRN (06:01)
[2021-05-04] MEDS ORDERED: *HR* Heparin 10,000 UNIT/10 ML VIAL IV PRN (06:01)
[2021-05-04 06:12] LABS: Hematocrit 30.8 % (35.3-44.9); Hemoglobin 10.5 g/dL (11.5-15.4); Mean Corpuscular HGB Conc 34.1 g/dL (31.6-35.5); Mean Corpuscular Hemoglobin 33.5 pg (28.0-33.3); Mean Corpuscular Volume 98.4 fL (83.0-100.0); Platelet Count 200 K/mcL (140-400); Red Blood Count 3.13 M/mcL (3.82-4.97); Red Cell Distribution Width 17.3 % (11.5-14.5); White Blood Count 11.2 K/mcL (4.3-11.1)
[2021-05-04] MEDS ORDERED: 0.9 % Sodium Chloride 1,000 ML PRIME SCH (06:15)
[2021-05-04 06:38] LABS: Calcium 8.9 mg/dL (8.6-10.3); Potassium 4.4 mEq/L (3.5-5.1)
[2021-05-04] MEDS: Insulin LISPRO 300 UNITS/3 ML VIAL SUBQ SCH ×3 (07:43→17:05)
[2021-05-04] MEDS: carvediloL 25 MG TABLET PO SCH ×2 (07:51→17:05)
[2021-05-04] MEDS: Aspirin 81 MG TAB.CHEW PO SCH ×2 (07:51→12:17)
[2021-05-04] MEDS: Sennosides/Docusate Sodium TABLET PO SCH ×2 (07:52→12:17)
[2021-05-04] MEDS: Isosorbide MONOnitrate (24 HR) 30 MG TAB.ER.24H PO SCH (07:52)
[2021-05-04] MEDS: Furosemide 40 MG TABLET PO SCH (07:52)
[2021-05-04] MEDS: polyethylene glycoL 3350 17 GM POWD.PACK PO SCH (08:38)
[2021-05-05 01:49] LABS: Hematocrit 33.4 % (35.3-44.9); Hemoglobin 10.8 g/dL (11.5-15.4); Mean Corpuscular HGB Conc 32.3 g/dL (31.6-35.5); Mean Corpuscular Hemoglobin 32.4 pg (28.0-33.3); Mean Corpuscular Volume 100.3 fL (83.0-100.0); Mean Platelet Volume 9.7 fL (9.4-12.4); Platelet Count 157 K/mcL (140-400); Red Blood Count 3.33 M/mcL (3.82-4.97); Red Cell Distribution Width 17.4 % (11.5-14.5); White Blood Count 11.1 K/mcL (4.3-11.1)
[2021-05-05 01:59] LABS: Calcium 8.5 mg/dL (8.6-10.3); Potassium 3.8 mEq/L (3.5-5.1)
[2021-05-05] MEDS: hydrALAZINE 25 MG TABLET PO SCH ×3 (02:59→15:33)
[2021-05-05] MEDS ORDERED: 0.9 % Sodium Chloride 250 ML IVC PRN (07:41)
[2021-05-05] MEDS: Insulin LISPRO 300 UNITS/3 ML VIAL SUBQ SCH ×3 (08:15→15:33)
[2021-05-05] MEDS: Isosorbide MONOnitrate (24 HR) 30 MG TAB.ER.24H PO SCH (10:16)
[2021-05-05] MEDS: Sennosides/Docusate Sodium TABLET PO SCH (10:16)
[2021-05-05] MEDS: Furosemide 40 MG TABLET PO SCH (10:16)
[2021-05-05] MEDS: Aspirin 81 MG TAB.CHEW PO SCH (10:16)
[2021-05-05] MEDS: carvediloL 25 MG TABLET PO SCH ×2 (10:16→15:33)
[2021-05-05] MEDS ORDERED: *HR* Heparin 10,000 UNIT/10 ML VIAL IV PRN (11:28)
[2021-05-05 13:08] VITALS: PULSE 85; O2SAT 100
[2021-05-05 15:24] VITALS: BP 122/64; TEMP 97.5
== END 2021-05-05 18:06 | DRG 280 ==
LOC: 2ANU 00:12 → EMEROOARM 00:12 → SUATTDRO 05:44 → 2NNU 06:23 → SUATTDRO 04-23 15:15 → 2ANU 04-25 18:51
PROVIDERS: ADMIT Internal Medicine; ATTEND Internal Medicine

== ENCOUNTER 2021-06-10 20:35 | Inpatient (IN) ==
[2021-06-10 21:56] LABS: VBG HCO3 24 mEq/L (21-27); VBG PCO2 35 mmHg (41-51); VBG PH 7.45 pH Units (7.32-7.42); VBG PO2 107 mmHg (25-50)
[2021-06-10 22:05] LABS: Basophils # 0.1 K/mcL (0.0-0.2); Basophils % 0.8 %; Eosinophils # 0.4 K/mcL (0.0-0.6); Eosinophils % 4.3 %; Hemoglobin 7.7 g/dL (11.5-15.4); Immature Granulocytes % 0.4 % (0-4); Lymphocytes # 0.9 K/mcL (0.6-4.6); Lymphocytes % 9.1 %; Mean Corpuscular Hemoglobin 33.9 pg (28.0-33.3); Mean Corpuscular Volume 96.9 fL (83.0-100.0); Mean Platelet Volume 9.6 fL (9.4-12.4); Monocytes # 1.2 K/mcL (0.0-1.3); Monocytes % 12.4 %; Neutrophils # 7.1 K/mcL (1.6-8.9); Platelet Count 199 K/mcL (140-400); Red Blood Count 2.27 M/mcL (3.82-4.97); Red Cell Distribution Width 12.8 % (11.5-14.5); White Blood Count 9.7 K/mcL (4.3-11.1)
[2021-06-10 22:19] LABS: Albumin 3.1 g/dL (3.5-5.7); Albumin/Globulin Ratio 0.9 (1.1-2.2); Bilirubin,Direct 0.2 mg/dL (0.0-0.2); Bilirubin,Indirect 0.5 mg/dL (0.0-1.0); Bilirubin,Total 0.7 mg/dL (0.3-1.0); Calcium 8.3 mg/dL (8.6-10.3); Globulin 3.5 g/dL (2.4-3.5); Potassium 3.4 mEq/L (3.5-5.1); Total Protein 6.6 g/dL (6.4-8.9)
[2021-06-10 22:20] LABS: Troponin I 0.03 ng/mL (< 0.04)
[2021-06-10] MEDS ORDERED: cefTRIAXone 1,000 MG in Water for inj. (sterile) 10 ML IVP ONE (23:11)
[2021-06-10] MEDS ORDERED: Azithromycin 250 MG TABLET PO ONE (23:11)
[2021-06-11] MEDS ORDERED: Furosemide 40 MG/4 ML VIAL IVP ONE (00:31)
[2021-06-11 01:31] LABS: Influenza A PCR Negative (Negative); Influenza B PCR Negative (Negative); Resp. Syncytial Virus PCR Negative (Negative); SARS-CoV-2 by PCR (In House) Negative (Negative)
[2021-06-11] MEDS ORDERED: Ondansetron 4 MG/2 ML VIAL IVP PRN (02:03)
[2021-06-11] MEDS ORDERED: Naloxone 0.4 MG/ML INJ IVP PRN (02:03)
[2021-06-11] MEDS ORDERED: Ipratropium/Albuterol Neb 3 ML IH PRN (02:06)
[2021-06-11] MEDS ORDERED: Dextrose Gel 15 GM/37.5 ML TUBE PO PRN ×2 (04:14)
[2021-06-11] MEDS ORDERED: D5% in Water 1,000 ML IVC PRN (04:14)
[2021-06-11] MEDS ORDERED: *HR* Dextrose 50 % in Water (Vial) 50 ML VIAL IVP PRN (04:14)
[2021-06-11] MEDS: *HR* Heparin 5,000 UNIT/ML VIAL SQ SCH ×2 (05:18→18:07)
[2021-06-11] MEDS ORDERED: *HR* Heparin 5,000 UNIT/ML VIAL SQ SCH (06:00)
[2021-06-11] MEDS ORDERED: 0.9 % Sodium Chloride 250 ML IVC PRN (08:04)
[2021-06-11] MEDS ORDERED: 0.9 % Sodium Chloride 1,000 ML PRIME SCH (08:15)
[2021-06-11] MEDS: amLODIPine 5 MG TABLET PO SCH (08:51)
[2021-06-11] MEDS: carvediloL 25 MG TABLET PO SCH ×2 (08:51→18:07)
[2021-06-11] MEDS ORDERED: Azithromycin 500 MG in 0.9 % Sodium Chloride 250 ML IVPB SCH (09:00)
[2021-06-11] MEDS ORDERED: cefTRIAXone 1,000 MG in 0.9 % Sodium Chloride Mini Bag 100 ML IVPB SCH (09:00)
[2021-06-11] MEDS: Insulin LISPRO 300 UNITS/3 ML VIAL SUBQ SCH ×3 (09:26→18:07)
[2021-06-11 10:06] LABS: INR 1.1; Prothrombin Time 13.2 Seconds (9.4-12.1)
[2021-06-11 10:13] LABS: Calcium 8.6 mg/dL (8.6-10.3); Magnesium 1.7 mg/dL (1.6-2.6); Potassium 3.6 mEq/L (3.5-5.1)
[2021-06-11 10:29] LABS: Hepatitis B Surface Antibody 84.51 mIU/mL
[2021-06-11 10:40] LABS: Hepatitis B Surface Antigen Nonreactive (Nonreactive)
[2021-06-11] MEDS ORDERED: Piperacillin/Tazobactam 3.375 GM in 0.9 % Sodium Chloride Mini Bag 100 ML IVPB SCH (11:00)
[2021-06-11] MEDS ORDERED: Perflutren Lipid Microsphere 1.3 ML in 0.9 % Sodium Chloride 8.7 ML IVP PRN (11:42)
[2021-06-11 13:15] LABS: Basophils # 0.1 K/mcL (0.0-0.2); Basophils % 1.3 %; Eosinophils # 0.5 K/mcL (0.0-0.6); Eosinophils % 5.3 %; Hemoglobin 8.2 g/dL (11.5-15.4); Immature Granulocytes % 0.2 % (0-4); Lymphocytes % 12.1 %; Mean Corpuscular HGB Conc 35.7 g/dL (31.6-35.5); Mean Corpuscular Hemoglobin 34.5 pg (28.0-33.3); Mean Corpuscular Volume 96.6 fL (83.0-100.0); Monocytes % 11.2 %; Platelet Count 211 K/mcL (140-400); Red Blood Count 2.38 M/mcL (3.82-4.97); Red Cell Distribution Width 12.6 % (11.5-14.5); Segmented Neutrophils % 69.9 %; White Blood Count 8.5 K/mcL (4.3-11.1)
[2021-06-11] MEDS: Doxycycline 100 MG in 0.9 % Sodium Chloride Mini Bag 100 ML IVPB SCH ×2 (13:49→21:33)
[2021-06-11] MEDS: Isosorbide MONOnitrate (24 HR) 30 MG TAB.ER.24H PO SCH (13:50)
[2021-06-11] MEDS: hydrALAZINE 25 MG TABLET PO SCH ×2 (15:13→21:29)
[2021-06-11 17:09] LABS: Total Protein,Pleural Fluid 2.3 g/dL
[2021-06-11 19:25] LABS: RBC,Pleural Fluid < 2000 RBC/mcL
[2021-06-11] MEDS: Lactobacillus 1 EACH CAP.SPRINK PO SCH (21:34)
[2021-06-11] MEDS ORDERED: *HR* Metoprolol 5 MG/5 ML VIAL IVP ONE (23:52)
[2021-06-12 01:20] LABS: Basophils,Pleural Fluid 0 %; Eosinophils,Pleural Fluid 0 %
[2021-06-12 01:32] LABS: Appearance of Pleural Fl Clear (Clear)
[2021-06-12 02:35] LABS: Basophils # 0.1 K/mcL (0.0-0.2); Eosinophils # 0.3 K/mcL (0.0-0.6); Eosinophils % 2.9 %; Hematocrit 22.3 % (35.3-44.9); Hemoglobin 7.8 g/dL (11.5-15.4); Immature Granulocytes % 0.4 % (0-4); Lymphocytes # 1.1 K/mcL (0.6-4.6); Lymphocytes % 12.2 %; Mean Corpuscular Hemoglobin 34.4 pg (28.0-33.3); Mean Corpuscular Volume 98.2 fL (83.0-100.0); Mean Platelet Volume 9.7 fL (9.4-12.4); Monocytes # 0.8 K/mcL (0.0-1.3); Monocytes % 9.1 %; Neutrophils # 6.7 K/mcL (1.6-8.9); Platelet Count 199 K/mcL (140-400); Red Blood Count 2.27 M/mcL (3.82-4.97); Red Cell Distribution Width 12.7 % (11.5-14.5); Segmented Neutrophils % 74.4 %
[2021-06-12 03:06] LABS: Albumin 2.9 g/dL (3.5-5.7); Albumin/Globulin Ratio 0.9 (1.1-2.2); Bilirubin,Direct 0.2 mg/dL (0.0-0.2); Bilirubin,Indirect 0.3 mg/dL (0.0-1.0); Bilirubin,Total 0.5 mg/dL (0.3-1.0); Calcium 8.2 mg/dL (8.6-10.3); Globulin 3.3 g/dL (2.4-3.5); Magnesium 1.6 mg/dL (1.6-2.6); Phosphorous 4.9 mg/dL (2.7-4.5); Potassium 3.8 mEq/L (3.5-5.1); Total Protein 6.2 g/dL (6.4-8.9)
[2021-06-12 03:14] LABS: Folate > 22.3 ng/mL (3.0-16.0); Vitamin B12 738 pg/mL (250-1100)
[2021-06-12] MEDS: Piperacillin/Tazobactam 3.375 GM in 0.9 % Sodium Chloride Mini Bag 100 ML IVPB SCH ×2 (04:19→15:04)
[2021-06-12] MEDS: *HR* Heparin 5,000 UNIT/ML VIAL SQ SCH ×2 (05:51→17:17)
[2021-06-12] MEDS ORDERED: 0.9 % Sodium Chloride 250 ML IVC PRN (07:13)
[2021-06-12] MEDS ORDERED: *HR* Heparin 10,000 UNIT/10 ML VIAL IV PRN (07:28)
[2021-06-12] MEDS: Cyanocobalamin (B-12) 1,000 MCG TABLET PO SCH (07:35)
[2021-06-12] MEDS: Aspirin 81 MG TAB.CHEW PO SCH (07:35)
[2021-06-12] MEDS: amLODIPine 5 MG TABLET PO SCH (07:35)
[2021-06-12] MEDS: carvediloL 25 MG TABLET PO SCH ×2 (07:35→17:16)
[2021-06-12] MEDS: Isosorbide MONOnitrate (24 HR) 30 MG TAB.ER.24H PO SCH (07:35)
[2021-06-12] MEDS: hydrALAZINE 25 MG TABLET PO SCH ×4 (07:36→20:51)
[2021-06-12] MEDS: Lactobacillus 1 EACH CAP.SPRINK PO SCH ×3 (07:36→20:50)
[2021-06-12] MEDS: Insulin LISPRO 300 UNITS/3 ML VIAL SUBQ SCH ×3 (07:39→17:13)
[2021-06-12] MEDS: Doxycycline 100 MG CAPSULE PO SCH ×2 (20:14→20:51)
[2021-06-13 02:36] LABS: Basophils # 0.1 K/mcL (0.0-0.2); Basophils % 0.9 %; Eosinophils # 0.3 K/mcL (0.0-0.6); Eosinophils % 3.1 %; Hemoglobin 7.9 g/dL (11.5-15.4); Immature Granulocytes % 0.1 % (0-4); Lymphocytes # 1.1 K/mcL (0.6-4.6); Lymphocytes % 13.2 %; Mean Corpuscular HGB Conc 34.3 g/dL (31.6-35.5); Mean Corpuscular Hemoglobin 33.8 pg (28.0-33.3); Mean Corpuscular Volume 98.3 fL (83.0-100.0); Mean Platelet Volume 9.7 fL (9.4-12.4); Monocytes # 1.1 K/mcL (0.0-1.3); Monocytes % 13.2 %; Neutrophils # 5.7 K/mcL (1.6-8.9); Platelet Count 187 K/mcL (140-400); Red Blood Count 2.34 M/mcL (3.82-4.97); Red Cell Distribution Width 12.9 % (11.5-14.5); Segmented Neutrophils % 69.5 %; White Blood Count 8.2 K/mcL (4.3-11.1)
[2021-06-13 02:53] LABS: Calcium 8.2 mg/dL (8.6-10.3); Magnesium 1.7 mg/dL (1.6-2.6); Potassium 3.6 mEq/L (3.5-5.1)
[2021-06-13] MEDS: Piperacillin/Tazobactam 3.375 GM in 0.9 % Sodium Chloride Mini Bag 100 ML IVPB SCH ×2 (04:13→15:39)
[2021-06-13] MEDS: *HR* Heparin 5,000 UNIT/ML VIAL SQ SCH ×2 (06:46→17:03)
[2021-06-13] MEDS: Insulin LISPRO 300 UNITS/3 ML VIAL SUBQ SCH ×3 (07:35→16:27)
[2021-06-13] MEDS: hydrALAZINE 25 MG TABLET PO SCH ×3 (09:20→22:12)
[2021-06-13] MEDS: Lactobacillus 1 EACH CAP.SPRINK PO SCH ×2 (09:21→22:12)
[2021-06-13] MEDS: carvediloL 25 MG TABLET PO SCH ×2 (09:21→15:38)
[2021-06-13] MEDS: Isosorbide MONOnitrate (24 HR) 30 MG TAB.ER.24H PO SCH (09:22)
[2021-06-13] MEDS: Doxycycline 100 MG CAPSULE PO SCH ×2 (09:22→22:12)
[2021-06-13] MEDS: amLODIPine 5 MG TABLET PO SCH (09:22)
[2021-06-13] MEDS: Cyanocobalamin (B-12) 1,000 MCG TABLET PO SCH (09:22)
[2021-06-13] MEDS: Aspirin 81 MG TAB.CHEW PO SCH (09:25)
[2021-06-13] MEDS ORDERED: 0.9 % Sodium Chloride 250 ML IVC PRN (12:28)
[2021-06-13] MEDS ORDERED: *HR* Heparin 10,000 UNIT/10 ML VIAL IV PRN (12:28)
[2021-06-14 02:17] LABS: Fluid Source for Albumin PLEURAL FLUID
[2021-06-14 02:19] LABS: Basophils # 0.1 K/mcL (0.0-0.2); Basophils % 1.3 %; Eosinophils # 0.1 K/mcL (0.0-0.6); Hematocrit 21.5 % (35.3-44.9); Hemoglobin 7.4 g/dL (11.5-15.4); Immature Granulocytes % 0.3 % (0-4); Lymphocytes % 13.5 %; Mean Corpuscular HGB Conc 34.4 g/dL (31.6-35.5); Mean Corpuscular Hemoglobin 34.1 pg (28.0-33.3); Mean Corpuscular Volume 99.1 fL (83.0-100.0); Mean Platelet Volume 9.8 fL (9.4-12.4); Monocytes # 0.7 K/mcL (0.0-1.3); Monocytes % 9.6 %; Neutrophils # 5.2 K/mcL (1.6-8.9); Platelet Count 178 K/mcL (140-400); Red Blood Count 2.17 M/mcL (3.82-4.97); Red Cell Distribution Width 12.6 % (11.5-14.5); Segmented Neutrophils % 73.3 %; White Blood Count 7.1 K/mcL (4.3-11.1)
[2021-06-14 02:40] LABS: Potassium 3.3 mEq/L (3.5-5.1)
[2021-06-14 03:21] LABS: Fluid Source for Cholesterol PLEURAL FLUID
[2021-06-14] MEDS: Piperacillin/Tazobactam 3.375 GM in 0.9 % Sodium Chloride Mini Bag 100 ML IVPB SCH ×2 (04:27→16:19)
[2021-06-14] MEDS: *HR* Heparin 5,000 UNIT/ML VIAL SQ SCH ×2 (04:28→17:29)
[2021-06-14 07:03] LABS: Cholesterol,Body Fluid 26 mg/dL
[2021-06-14] MEDS: Insulin LISPRO 300 UNITS/3 ML VIAL SUBQ SCH ×3 (07:09→16:20)
[2021-06-14] MEDS: hydrALAZINE 25 MG TABLET PO SCH ×3 (08:52→19:54)
[2021-06-14] MEDS: Aspirin 81 MG TAB.CHEW PO SCH (08:52)
[2021-06-14] MEDS: Doxycycline 100 MG CAPSULE PO SCH (08:52)
[2021-06-14] MEDS: Lactobacillus 1 EACH CAP.SPRINK PO SCH ×2 (08:52→19:54)
[2021-06-14] MEDS: amLODIPine 5 MG TABLET PO SCH (08:52)
[2021-06-14] MEDS: Cyanocobalamin (B-12) 1,000 MCG TABLET PO SCH (08:52)
[2021-06-14] MEDS: carvediloL 25 MG TABLET PO SCH ×2 (08:52→16:19)
[2021-06-14] MEDS: Isosorbide MONOnitrate (24 HR) 30 MG TAB.ER.24H PO SCH (08:53)
[2021-06-14] MEDS ORDERED: amLODIPine 5 MG TABLET PO ONE (14:45)
[2021-06-15] MEDS: Piperacillin/Tazobactam 3.375 GM in 0.9 % Sodium Chloride Mini Bag 100 ML IVPB SCH (04:26)
[2021-06-15] MEDS: *HR* Heparin 5,000 UNIT/ML VIAL SQ SCH ×2 (05:15→16:01)
[2021-06-15] MEDS ORDERED: 0.9 % Sodium Chloride 1,000 ML ONE (07:01)
[2021-06-15] MEDS ORDERED: 0.9 % Sodium Chloride 250 ML IVC PRN (07:22)
[2021-06-15 08:05] LABS: Basophils # 0.1 K/mcL (0.0-0.2); Basophils % 1.2 %; Eosinophils # 0.6 K/mcL (0.0-0.6); Eosinophils % 7.5 %; Hematocrit 23.9 % (35.3-44.9); Hemoglobin 8.2 g/dL (11.5-15.4); Immature Granulocytes % 0.2 % (0-4); Lymphocytes # 1.2 K/mcL (0.6-4.6); Lymphocytes % 14.9 %; Mean Corpuscular HGB Conc 34.3 g/dL (31.6-35.5); Mean Corpuscular Hemoglobin 33.7 pg (28.0-33.3); Mean Corpuscular Volume 98.4 fL (83.0-100.0); Mean Platelet Volume 9.9 fL (9.4-12.4); Monocytes # 0.8 K/mcL (0.0-1.3); Monocytes % 9.5 %; Neutrophils # 5.4 K/mcL (1.6-8.9); Platelet Count 193 K/mcL (140-400); Red Blood Count 2.43 M/mcL (3.82-4.97); Red Cell Distribution Width 12.3 % (11.5-14.5); Segmented Neutrophils % 66.7 %; White Blood Count 8.1 K/mcL (4.3-11.1)
[2021-06-15 08:30] LABS: Calcium 8.7 mg/dL (8.6-10.3); Potassium 3.6 mEq/L (3.5-5.1)
[2021-06-15] MEDS: carvediloL 25 MG TABLET PO SCH ×2 (15:34→16:01)
[2021-06-15] MEDS: Insulin LISPRO 300 UNITS/3 ML VIAL SUBQ SCH ×2 (15:34→16:02)
[2021-06-15] MEDS: Lactobacillus 1 EACH CAP.SPRINK PO SCH ×2 (15:35→21:22)
[2021-06-15] MEDS: Aspirin 81 MG TAB.CHEW PO SCH (15:35)
[2021-06-15] MEDS: Isosorbide MONOnitrate (24 HR) 30 MG TAB.ER.24H PO SCH (15:35)
[2021-06-15] MEDS: hydrALAZINE 25 MG TABLET PO SCH ×3 (15:35→21:23)
[2021-06-15] MEDS: amLODIPine 5 MG TABLET PO SCH (15:36)
[2021-06-15] MEDS: Cyanocobalamin (B-12) 1,000 MCG TABLET PO SCH (15:36)
[2021-06-15] MEDS: Acetaminophen 325 MG TABLET PO PRN (17:31)
[2021-06-16 02:50] LABS: Basophils # 0.1 K/mcL (0.0-0.2); Basophils % 1.3 %; Eosinophils # 0.6 K/mcL (0.0-0.6); Eosinophils % 7.4 %; Hemoglobin 8.4 g/dL (11.5-15.4); Immature Granulocytes % 0.2 % (0-4); Lymphocytes % 11.7 %; Mean Corpuscular Hemoglobin 34.6 pg (28.0-33.3); Mean Corpuscular Volume 98.8 fL (83.0-100.0); Mean Platelet Volume 9.1 fL (9.4-12.4); Monocytes # 0.7 K/mcL (0.0-1.3); Monocytes % 8.8 %; Platelet Count 193 K/mcL (140-400); Red Blood Count 2.43 M/mcL (3.82-4.97); Red Cell Distribution Width 12.4 % (11.5-14.5); Segmented Neutrophils % 70.6 %; White Blood Count 8.4 K/mcL (4.3-11.1)
[2021-06-16 03:11] LABS: Potassium 3.7 mEq/L (3.5-5.1)
[2021-06-16 03:12] LABS: Calcium 8.3 mg/dL (8.6-10.3)
[2021-06-16] MEDS: *HR* Heparin 5,000 UNIT/ML VIAL SQ SCH ×2 (05:57→17:43)
[2021-06-16] MEDS: Insulin LISPRO 300 UNITS/3 ML VIAL SUBQ SCH ×3 (07:52→17:41)
[2021-06-16] MEDS: amLODIPine 5 MG TABLET PO SCH (07:52)
[2021-06-16] MEDS: Cyanocobalamin (B-12) 1,000 MCG TABLET PO SCH (07:53)
[2021-06-16] MEDS: Isosorbide MONOnitrate (24 HR) 30 MG TAB.ER.24H PO SCH (07:53)
[2021-06-16] MEDS: hydrALAZINE 25 MG TABLET PO SCH ×3 (07:53→20:49)
[2021-06-16] MEDS: Lactobacillus 1 EACH CAP.SPRINK PO SCH ×2 (07:54→20:49)
[2021-06-16] MEDS: Aspirin 81 MG TAB.CHEW PO SCH (07:54)
[2021-06-16] MEDS: carvediloL 25 MG TABLET PO SCH ×2 (07:54→17:43)
[2021-06-16] MEDS: Ipratropium/Albuterol Neb 3 ML IH SCH ×6 (08:12→20:48)
[2021-06-16] MEDS ORDERED: *HR* Heparin 10,000 UNIT/10 ML VIAL IV PRN (12:53)
[2021-06-16] MEDS ORDERED: 0.9 % Sodium Chloride 250 ML IVC PRN (12:53)
[2021-06-16] MEDS ORDERED: 0.9 % Sodium Chloride 1,000 ML PRIME SCH (13:00)
[2021-06-17] MEDS: Ipratropium/Albuterol Neb 3 ML IH SCH ×6 (00:22→20:31)
[2021-06-17] MEDS: *HR* Heparin 5,000 UNIT/ML VIAL SQ SCH (05:54)
[2021-06-17 06:24] LABS: Basophils # 0.1 K/mcL (0.0-0.2); Eosinophils # 0.1 K/mcL (0.0-0.6); Hematocrit 21.2 % (35.3-44.9); Hemoglobin 7.2 g/dL (11.5-15.4); Immature Granulocytes % 0.5 % (0-4); Lymphocytes # 0.9 K/mcL (0.6-4.6); Lymphocytes % 11.6 %; Mean Corpuscular Hemoglobin 33.8 pg (28.0-33.3); Mean Corpuscular Volume 99.5 fL (83.0-100.0); Mean Platelet Volume 9.7 fL (9.4-12.4); Monocytes # 0.3 K/mcL (0.0-1.3); Monocytes % 4.1 %; Neutrophils # 6.3 K/mcL (1.6-8.9); Platelet Count 138 K/mcL (140-400); Red Blood Count 2.13 M/mcL (3.82-4.97); Red Cell Distribution Width 12.5 % (11.5-14.5); Segmented Neutrophils % 81.8 %; White Blood Count 7.8 K/mcL (4.3-11.1)
[2021-06-17 06:42] LABS: Calcium 8.2 mg/dL (8.6-10.3); Potassium 4.3 mEq/L (3.5-5.1)
[2021-06-17] MEDS ORDERED: Iron Sucrose Complex 200 MG in 0.9 % Sodium Chloride 100 ML IVPB ONE (06:53)
[2021-06-17] MEDS: Insulin LISPRO 300 UNITS/3 ML VIAL SUBQ SCH ×3 (07:59→16:15)
[2021-06-17] MEDS: amLODIPine 5 MG TABLET PO SCH (10:03)
[2021-06-17] MEDS: Lactobacillus 1 EACH CAP.SPRINK PO SCH ×2 (10:04→20:55)
[2021-06-17] MEDS: hydrALAZINE 25 MG TABLET PO SCH ×3 (10:04→20:56)
[2021-06-17] MEDS: Cyanocobalamin (B-12) 1,000 MCG TABLET PO SCH (10:04)
[2021-06-17] MEDS: Aspirin 81 MG TAB.CHEW PO SCH (10:04)
[2021-06-17] MEDS: carvediloL 25 MG TABLET PO SCH ×2 (10:09→15:53)
[2021-06-17] MEDS: Isosorbide MONOnitrate (24 HR) 30 MG TAB.ER.24H PO SCH (10:09)
[2021-06-17 11:53] LABS: Brucella Antibody Total <1:20 (<1:20)
[2021-06-17 13:24] LABS: Adenovirus Not Detected (Not Detect); Bordetella Pertussis Not Detected (Not Detect); Chlamydophila pneumoniae Not Detected (Not Detect); Coronavirus 229E Not Detected (Not Detect); Coronavirus HKU1 Not Detected (Not Detect); Coronavirus NL63 Not Detected (Not Detect); Coronavirus OC43 Not Detected (Not Detect); Human Metapneumovirus Not Detected (Not Detect); Human Rhinovirus/Enterovirus Not Detected (Not Detect); Influenza A Subtype 2009 H1 Not Detected (Not Detect); Influenza B Not Detected (Not Detect); Mycoplasma pneumoniae Not Detected (Not Detect); Parainfluenza Virus 1 Not Detected (Not Detect); Parainfluenza Virus 2 Not Detected (Not Detect); Parainfluenza Virus 3 Not Detected (Not Detect); Parainfluenza Virus 4 Not Detected (Not Detect); Respiratory Syncytial Virus Not Detected (Not Detect); SARS-CoV-2 Not Detected (Not Detect)
[2021-06-18] MEDS: Ipratropium/Albuterol Neb 3 ML IH SCH ×7 (00:16→23:27)
[2021-06-18 06:13] LABS: Basophils # 0.1 K/mcL (0.0-0.2); Basophils % 1.1 %; Eosinophils # 0.8 K/mcL (0.0-0.6); Eosinophils % 8.8 %; Hematocrit 21.4 % (35.3-44.9); Hemoglobin 7.4 g/dL (11.5-15.4); Immature Granulocytes % 1.2 % (0-4); Lymphocytes # 1.5 K/mcL (0.6-4.6); Lymphocytes % 15.8 %; Mean Corpuscular HGB Conc 34.6 g/dL (31.6-35.5); Mean Corpuscular Hemoglobin 34.3 pg (28.0-33.3); Mean Corpuscular Volume 99.1 fL (83.0-100.0); Mean Platelet Volume 10.4 fL (9.4-12.4); Monocytes # 0.8 K/mcL (0.0-1.3); Monocytes % 8.9 %; Platelet Count 157 K/mcL (140-400); Red Blood Count 2.16 M/mcL (3.82-4.97); Red Cell Distribution Width 12.5 % (11.5-14.5); Segmented Neutrophils % 64.2 %; White Blood Count 9.4 K/mcL (4.3-11.1)
[2021-06-18 06:33] LABS: Calcium 8.3 mg/dL (8.6-10.3); Potassium 3.9 mEq/L (3.5-5.1)
[2021-06-18] MEDS: Insulin LISPRO 300 UNITS/3 ML VIAL SUBQ SCH ×3 (07:28→16:21)
[2021-06-18] MEDS ORDERED: 0.9 % Sodium Chloride 250 ML IVC PRN (07:50)
[2021-06-18] MEDS ORDERED: *HR* Heparin 10,000 UNIT/10 ML VIAL IV PRN (07:50)
[2021-06-18] MEDS: Aspirin 81 MG TAB.CHEW PO SCH (08:30)
[2021-06-18] MEDS: Lactobacillus 1 EACH CAP.SPRINK PO SCH ×2 (08:30→20:47)
[2021-06-18] MEDS: Cyanocobalamin (B-12) 1,000 MCG TABLET PO SCH (08:30)
[2021-06-18 08:59] LABS: Bacteria,Urine Few per hpf (None-Few); Bilirubin,Urine Negative (Negative); Blood,Urine Small (Negative); Clarity,Urine Turbid (Clear); Color,Urine Yellow (Yellow); Glucose,Urine (UA) 50 mg/dL (Normal); Hyaline Casts,Urine Many per lpf (None Seen); Ketones,Urine Negative (Negative); Leukocyte Esterase,Urine Small (Negative); Mucus,Urine Few per lpf (None-Few); Nitrite,Urine Negative (Negative); Protein,Urine >=300 mg/dL (Neg-Trace); Renal Epithelial Cells,Urine Few per hpf (None-Few); Specific Gravity,Urine 1.018 (1.010-1.025); Squamous Epithelial Cell,Urine Few per hpf (None-Few); Transitional Epi Cells,Urine Few per hpf (None-Few); Urobilinogen,Urine Normal (Normal)
[2021-06-18] MEDS: Isosorbide MONOnitrate (24 HR) 30 MG TAB.ER.24H PO SCH (14:07)
[2021-06-18] MEDS: carvediloL 25 MG TABLET PO SCH ×2 (14:07→14:13)
[2021-06-18] MEDS: amLODIPine 5 MG TABLET PO SCH (14:07)
[2021-06-18] MEDS: hydrALAZINE 25 MG TABLET PO SCH ×3 (14:08→20:47)
[2021-06-18] MEDS: Torsemide 20 MG TABLET PO SCH (20:47)
[2021-06-19] MEDS: Ipratropium/Albuterol Neb 3 ML IH SCH ×6 (03:53→23:08)
[2021-06-19 04:19] LABS: Calcium 8.1 mg/dL (8.6-10.3); Potassium 4.1 mEq/L (3.5-5.1)
[2021-06-19 04:32] LABS: Basophils # 0.1 K/mcL (0.0-0.2); Eosinophils # 0.7 K/mcL (0.0-0.6); Eosinophils % 7.3 %; Hematocrit 20.5 % (35.3-44.9); Hemoglobin 7.1 g/dL (11.5-15.4); Immature Granulocytes % 0.7 % (0-4); Lymphocytes # 1.6 K/mcL (0.6-4.6); Lymphocytes % 17.2 %; Mean Corpuscular HGB Conc 34.6 g/dL (31.6-35.5); Mean Corpuscular Hemoglobin 34.8 pg (28.0-33.3); Mean Corpuscular Volume 100.5 fL (83.0-100.0); Mean Platelet Volume 10.3 fL (9.4-12.4); Monocytes % 11.1 %; Neutrophils # 5.7 K/mcL (1.6-8.9); Platelet Count 179 K/mcL (140-400); Red Blood Count 2.04 M/mcL (3.82-4.97); Red Cell Distribution Width 12.8 % (11.5-14.5); Segmented Neutrophils % 62.7 %
[2021-06-19] MEDS: Insulin LISPRO 300 UNITS/3 ML VIAL SUBQ SCH ×3 (07:43→16:49)
[2021-06-19 08:39] LABS: % Iron Saturation 22 % (15-50); Iron 47 mcg/dL (50-170); Transferrin 151 mg/dL (203-362)
[2021-06-19 08:55] LABS: Ferritin 1013 ng/mL (10-120)
[2021-06-19] MEDS: Torsemide 20 MG TABLET PO SCH ×3 (10:35→21:57)
[2021-06-19] MEDS: carvediloL 25 MG TABLET PO SCH ×2 (10:35→18:13)
[2021-06-19] MEDS: Isosorbide MONOnitrate (24 HR) 30 MG TAB.ER.24H PO SCH (10:35)
[2021-06-19] MEDS: Lactobacillus 1 EACH CAP.SPRINK PO SCH ×3 (10:35→21:57)
[2021-06-19] MEDS: amLODIPine 5 MG TABLET PO SCH (10:36)
[2021-06-19] MEDS: Cyanocobalamin (B-12) 1,000 MCG TABLET PO SCH (10:36)
[2021-06-19] MEDS: Aspirin 81 MG TAB.CHEW PO SCH (10:36)
[2021-06-19] MEDS: hydrALAZINE 25 MG TABLET PO SCH ×3 (10:36→21:57)
[2021-06-20] MEDS: Acetaminophen 325 MG TABLET PO PRN (03:38)
[2021-06-20] MEDS: Ipratropium/Albuterol Neb 3 ML IH SCH ×6 (04:23→23:16)
[2021-06-20] MEDS ORDERED: 0.9 % Sodium Chloride 2,000 ML ONE (07:24)
[2021-06-20] MEDS ORDERED: *HR* Heparin 10,000 UNIT/10 ML VIAL IV PRN (07:29)
[2021-06-20] MEDS ORDERED: 0.9 % Sodium Chloride 250 ML IVC PRN (07:29)
[2021-06-20] MEDS ORDERED: 0.9 % Sodium Chloride 1,000 ML PRIME SCH (07:30)
[2021-06-20 07:52] LABS: Basophils # 0.1 K/mcL (0.0-0.2); Basophils % 0.9 %; Eosinophils # 0.6 K/mcL (0.0-0.6); Hematocrit 21.1 % (35.3-44.9); Hemoglobin 7.3 g/dL (11.5-15.4); Immature Granulocytes % 0.5 % (0-4); Lymphocytes # 1.5 K/mcL (0.6-4.6); Lymphocytes % 14.9 %; Mean Corpuscular HGB Conc 34.6 g/dL (31.6-35.5); Mean Corpuscular Hemoglobin 34.6 pg (28.0-33.3); Mean Platelet Volume 10.5 fL (9.4-12.4); Monocytes # 0.8 K/mcL (0.0-1.3); Monocytes % 8.2 %; Platelet Count 188 K/mcL (140-400); Red Blood Count 2.11 M/mcL (3.82-4.97); Red Cell Distribution Width 12.9 % (11.5-14.5); Segmented Neutrophils % 69.5 %
[2021-06-20] MEDS: Torsemide 20 MG TABLET PO SCH ×2 (08:00→20:31)
[2021-06-20] MEDS: amLODIPine 5 MG TABLET PO SCH (08:00)
[2021-06-20] MEDS: Isosorbide MONOnitrate (24 HR) 30 MG TAB.ER.24H PO SCH (08:00)
[2021-06-20] MEDS: Cyanocobalamin (B-12) 1,000 MCG TABLET PO SCH (08:00)
[2021-06-20] MEDS: carvediloL 25 MG TABLET PO SCH ×2 (08:00→16:51)
[2021-06-20] MEDS: hydrALAZINE 25 MG TABLET PO SCH ×3 (08:00→20:32)
[2021-06-20] MEDS: Insulin LISPRO 300 UNITS/3 ML VIAL SUBQ SCH ×3 (08:00→19:15)
[2021-06-20 08:04] LABS: Calcium 8.3 mg/dL (8.6-10.3); Potassium 4.2 mEq/L (3.5-5.1)
[2021-06-20] MEDS: Aspirin 81 MG TAB.CHEW PO SCH (12:43)
[2021-06-20] MEDS: Lactobacillus 1 EACH CAP.SPRINK PO SCH ×2 (12:43→20:31)
[2021-06-20 13:44] LABS: Bartonella Source WHOLE BLOOD
[2021-06-20 13:55] LABS: Bartonella Species PCR NOT DETECTED
[2021-06-21] MEDS: Ipratropium/Albuterol Neb 3 ML IH SCH ×3 (03:54→11:41)
[2021-06-21 07:24] VITALS: BP 156/62; PULSE 72; TEMP 98.2; O2SAT 99
[2021-06-21] MEDS: Insulin LISPRO 300 UNITS/3 ML VIAL SUBQ SCH (07:36)
[2021-06-21] MEDS: amLODIPine 5 MG TABLET PO SCH (10:01)
[2021-06-21] MEDS: Lactobacillus 1 EACH CAP.SPRINK PO SCH (10:01)
[2021-06-21] MEDS: Aspirin 81 MG TAB.CHEW PO SCH (10:01)
[2021-06-21] MEDS: carvediloL 25 MG TABLET PO SCH (10:01)
[2021-06-21] MEDS: Isosorbide MONOnitrate (24 HR) 30 MG TAB.ER.24H PO SCH (10:01)
[2021-06-21] MEDS: Cyanocobalamin (B-12) 1,000 MCG TABLET PO SCH (10:02)
== END 2021-06-21 12:52 | disposition hospice, home (50) | DRG 291 ==
LOC: EMEROOARM 20:35 → 3ANU 20:35 → SUATTDRO 06-11 02:03 → 3ANU 06-11 02:21
PROVIDERS: ADMIT Internal Medicine; ATTEND Hospitalist

== ENCOUNTER 2021-11-30 04:17 | Inpatient (IN) ==
[2021-11-30 04:27] VITALS: TEMP 95.9
[2021-11-30 04:49] LABS: Basophils # 0.1 K/mcL (0.0-0.2); Basophils % 0.8 %; Eosinophils # 0.3 K/mcL (0.0-0.6); Eosinophils % 1.8 %; Hematocrit 34.2 % (35.3-44.9); Hemoglobin 11.4 g/dL (11.5-15.4); Immature Granulocytes % 0.4 % (0-4); Lymphocytes # 1.5 K/mcL (0.6-4.6); Lymphocytes % 9.9 %; Mean Corpuscular HGB Conc 33.3 g/dL (31.6-35.5); Mean Corpuscular Hemoglobin 32.9 pg (28.0-33.3); Mean Corpuscular Volume 98.8 fL (83.0-100.0); Mean Platelet Volume 11.2 fL (9.4-12.4); Neutrophils # 11.9 K/mcL (1.6-8.9); Platelet Count 220 K/mcL (140-400); Red Blood Count 3.46 M/mcL (3.82-4.97); Red Cell Distribution Width 14.3 % (11.5-14.5); Segmented Neutrophils % 80.1 %; White Blood Count 14.9 K/mcL (4.3-11.1)
[2021-11-30 04:59] LABS: VBG HCO3 23 mEq/L (21-27); VBG PCO2 86 mmHg (41-51); VBG PH 7.03 pH Units (7.32-7.42); VBG PO2 136 mmHg (25-50)
[2021-11-30 05:08] LABS: INR 1.2; Prothrombin Time 12.9 Seconds (9.4-12.1)
[2021-11-30 05:12] LABS: Activated Partial Thrombo Time 40.7 Seconds (26.0-36.0)
[2021-11-30 05:26] LABS: Albumin 3.9 g/dL (3.5-5.7); Bilirubin,Direct 0.1 mg/dL (0.0-0.2); Bilirubin,Indirect 0.7 mg/dL (0.0-1.0); Bilirubin,Total 0.8 mg/dL (0.3-1.0); Calcium 8.4 mg/dL (8.6-10.3); Potassium 4.5 mEq/L (3.5-5.1); Total Protein 7.9 g/dL (6.4-8.9); Troponin I 0.04 ng/mL (< 0.04)
[2021-11-30 06:53] LABS: Influenza A PCR Negative (Negative); Influenza B PCR Negative (Negative); Resp. Syncytial Virus PCR Negative (Negative)
[2021-11-30] MEDS ORDERED: Vancomycin 500 MG in 0.9 % Sodium Chloride Mini Bag 100 ML IVPB STA (06:53)
[2021-11-30 06:57] LABS: SARS-CoV-2 by PCR (In House) Negative (Negative)
[2021-11-30] MEDS ORDERED: Piperacillin/Tazobactam 3.375 GM in 0.9 % Sodium Chloride Mini Bag 100 ML IVPB ONE (07:00)
[2021-11-30] MEDS ORDERED: 0.9 % Sodium Chloride 250 ML IVC PRN (08:26)
[2021-11-30] MEDS ORDERED: 0.9 % Sodium Chloride 1,000 ML PRIME SCH (08:30)
[2021-11-30] MEDS ORDERED: *HR* Heparin 10,000 UNIT/10 ML VIAL IV PRN (08:47)
[2021-11-30 08:52] LABS: VBG HCO3 25 mEq/L (21-27); VBG PCO2 62 mmHg (41-51); VBG PO2 144 mmHg (25-50)
[2021-11-30] MEDS ORDERED: Ipratropium/Albuterol Neb 3 ML IH SCH ×2 (10:00→12:00)
[2021-11-30] MEDS ORDERED: Budesonide/Formoterol 80/4.5 1 PUFF INH IH SCH (10:30)
[2021-11-30] MEDS ORDERED: *HR* FentaNYL (PF) 100 MCG/2 ML VIAL IVP PRN (11:10)
[2021-11-30] MEDS ORDERED: Saliva Stimulant 44.3ml BOTTLE PO PRN (11:11)
[2021-11-30] MEDS ORDERED: Artificial Tears SOLN 15 ML BOTTLE BOTH EYES PRN (11:11)
[2021-11-30] MEDS ORDERED: Atropine Sulfate 1% 40 DROP/2 ML BOTTLE SL PRN (11:11)
[2021-11-30] MEDS ORDERED: *HR* LORazepam 2 MG/ML VIAL IVP PRN (11:11)
[2021-11-30] MEDS ORDERED: methylPREDNISolone 125 MG/2 ML VIAL IVP SCH (12:00)
[2021-11-30 13:25] VITALS: BP 185/63; O2SAT 87
[2021-11-30] MEDS ORDERED: Piperacillin/Tazobactam 3.375 GM in 0.9 % Sodium Chloride Mini Bag 100 ML IVPB SCH (16:00)
[2021-11-30 16:14] VITALS: PULSE 95
[2021-11-30] MEDS ORDERED: Doxycycline 100 MG in 0.9 % Sodium Chloride Mini Bag 100 ML IVPB SCH (18:00)
[2021-12-01 09:57] LABS: CTX-M ESBL Gene Not Detected (Not Detect); Enterococcus faecalis by PCR Not Detected (Not Detect); Enterococcus faecium by PCR Not Detected (Not Detect); IMP Carbapenem-Resist Gene Not Detected (Not Detect); NDM Carbapenem-Resist Gene Not Detected (Not Detect); OXA-48-like Carbap-Resist Gene Not Detected (Not Detect); Staph epidermidis by PCR DETECTED (Not Detect); Staphylococcus aureus by PCR Not Detected (Not Detect); VIM Carbapenem-Resist Gene Not Detected (Not Detect); blaKPC Carbapenem-Resist Gene Not Detected (Not Detect); mcr-1 Colistin-Resist Gene Not Detected (Not Detect); mecA/C & MREJ (MRSA) Gene Not Detected (Not Detect); mecA/C Methicillin-Resist Gene Not Detected (Not Detect); vanA/B Vancomycin-Resist Genes Not Detected (Not Detect)
[2021-12-01 09:58] LABS: A.calcoaceticus-baumannii cplx Not Detected (Not Detect); Bacteroides fragilis by PCR Not Detected (Not Detect); Candida albicans by PCR Not Detected (Not Detect); Candida auris by PCR Not Detected (Not Detect); Candida glabrata by PCR Not Detected (Not Detect); Candida krusei by PCR Not Detected (Not Detect); Candida parapsilosis by PCR Not Detected (Not Detect); Candida tropicalis by PCR Not Detected (Not Detect); Crypto. neoformans/gattii PCR Not Detected (Not Detect); Enterobacter cloacae Cmplx PCR Not Detected (Not Detect); Enterobacterales by PCR Not Detected (Not Detect); Escherichia coli by PCR Not Detected (Not Detect); Klebs. pneumoniae group by PCR Not Detected (Not Detect); Klebsiella aerogenes by PCR Not Detected (Not Detect); Klebsiella oxytoca by PCR Not Detected (Not Detect); Proteus by PCR Not Detected (Not Detect); Pseudomonas aeruginosa by PCR Not Detected (Not Detect); Salmonella species by PCR Not Detected (Not Detect); Serratia marcescens by PCR Not Detected (Not Detect); Staph lugdunensis by PCR Not Detected (Not Detect); Stenotrophomonas maltophilia Not Detected (Not Detect); Streptococcus agalactiae(B)PCR Not Detected (Not Detect); Streptococcus by PCR Not Detected (Not Detect); Streptococcus pneumoniae PCR Not Detected (Not Detect); Streptococcus pyogenes (A) PCR Not Detected (Not Detect)
== END 2021-11-30 20:00 | disposition expired ==
LOC: 3NENU 04:17 → EMEROOARM 04:17 → 3NENU 12:17
PROVIDERS: ADMIT Internal Medicine; ATTEND Internal Medicine